=== PATIENT | female | born 1960 | race Caucasian/White ===

== ENCOUNTER 2019-11-26 08:45 | Outpatient (CLI) | payer OTHER, SELFPAY ==
[2019-11-26 09:23] LABS: Basophils Percent Auto 0.6 % (0.2-1.2); Eosinophils Absolute Auto 0.2 K/mm3 (0-0.3); Eosinophils Percent Auto 2.5 % (0-4.4); Hematocrit 41.2 % (37.0-47.0); Hemoglobin 12.5 g/dL (12.0-15.0); Immature Granulocyte Absolute 0.05 K/mm3 (0.00-0.031); Immature Granulocyte Percent A 0.7 % (0-0.5); Lymphocytes Absolute Auto 2.03 K/mm3 (0.9-3.2); Lymphocytes Percent Auto 27.9 % (18.3-44.2); Mean Corpuscular HGB Conc 30.3 g/dl (32-36); Mean Corpuscular Hemoglobin 21.9 pg (26-34); Mean Corpuscular Volume 72.2 fl (80-100); Mean Platelet Volume 10.8 fl (7.4-10.4); Monocytes Absolute Auto 0.6 K/mm3 (0.1-0.6); Monocytes Percent Auto 8.1 % (2.6-8.5); Neutrophils Absolute Auto 4.4 K/mm3 (1.3-6.7); Neutrophils Percent Auto 60.2 % (45.5-73.1); Platelet Count Result 239 k/mm3 (150-375); Red Blood Count 5.71 M/mm3 (4.2-5.4); Red Cell Distribution Width 16.7 % (11.5-14.5); White Blood Count 7.3 K/mm3 (4.5-10.0)
[2019-11-26 09:41] LABS: Alanine Aminotransferase 35 U/L (4-35); Albumin Level 4.4 g/dL (3.5-5.1); Alkaline Phosphatase 73 U/L (38-126); Aspartate Amino Transferase 27 U/L (14-36); Bilirubin,Total 0.2 mg/dL (0.2-1.3); Blood Urea Nitrogen 19 mg/dL (7-17); Calcium 9.7 mg/dL (8.4-10.2); Carbon Dioxide 29 mmol/L (22-30); Chloride 103 mmol/L (98-107); Cholesterol 265 mg/dL (0-200); Estimated Glomerular Filt Rate > 60; Glucose 93 mg/dL (65-105); HDL Direct 66 mg/dL; Potassium 4.3 mmol/L (3.4-5.0); Sodium 138 mmol/L (137-145); Triglycerides 126 mg/dL (<150)
[2019-11-26 09:52] LABS: LDL Cholesterol Direct 172 mg/dL
[2019-11-26 10:10] LABS: Iron 110 ug/dL (37-170)
[2019-11-26 10:12] LABS: Thyroid Stimulating Hormone 0.672 uIU/mL (0.465-4.680); Total Triiodothyronine (T3) 1.78 NG/ML (0.97-1.69)
[2019-11-26 10:13] LABS: Vitamin D 25 Hydroxy 29.3 ng/mL
[2019-11-26 10:14] LABS: Creatinine Urine 131.8 mg/dL
[2019-11-26 10:28] LABS: Free T4 Free Thyroxine 1.01 ng/mL (0.78-2.19)
[2019-11-26 10:30] LABS: MALB Creatinine Ratio < 4.6 mg/g (0-30); Microalbumin Urine Random < 6.0 mg/L (0-16.7)
== END 2019-11-26 08:46 | disposition home or self-care (01) ==
LOC: ANHLAB 08:49
PROVIDERS: PCP Family Medicine; Visit Provider Nurse Practitioner
DX: Z00.00 Encounter for general adult medical examination without abnormal findings (principal); I10 Essential (primary) hypertension; E78.00 Pure hypercholesterolemia, unspecified; R53.83 Other fatigue; Z13.0 Encounter for screening for diseases of the blood and blood-forming organs and certain disorders involving the immune mechanism; Z13.6 Encounter for screening for cardiovascular disorders; Z13.220 Encounter for screening for lipoid disorders; Z13.29 Encounter for screening for other suspected endocrine disorder; R80.9 Proteinuria, unspecified; E55.9 Vitamin D deficiency, unspecified
CPT/HCPCS: 36415; 80053; 80061; 82043; 82306; 82607; 83540; 84439; 84443; 84480; 85025

== ENCOUNTER 2025-05-12 01:14 | Day surgery (SDC) | payer MEDICARE, MEDICAID, SELFPAY ==
--- OUTSIDE RECORDS SUMMARY | 2025-04-27 04:30 | XMS_ITS | Continuity of Care Document ---
Author Organization [facility] Address [address] [place] [phone] Phone Care Team Providers Care Obstetrical Tech Name Role Phone Jannette BAY, [facility], [employer] Unavailable Unavailab le Advance Directives Directive Yes / No Effective Date File Name No Information Encounters Encounter Description Practice Location Reason(s) For Visit Diagnoses Date Provider Providers Copied on Encounter [facility], [address] [place] [address], [id number], tel:[phone] [facility] No Information Jannette Hallman. [address] [place] [address], [id number], . tel:[phone] Referring Provider: Lm Oconnor [address] [place] [address], [id number]. tel:[phone] Family History Family Member Type Diagnosis Age At Onset No Information Payers Payer name Insurance type Covered constitution party ID Authoriza tion(s) No Information Social History Type Description Quantity Date Captured Comments Sex Female Smoking Status No Information Chief Complaint And Reason For Visit No Information Reason For Referral Reason For Referral No Information History Of Present Illness Encounter Date Complaint History Of Prese nt Illness No Information Functional Status Date Functional Assessmen t No Information Instructions Date Instruction Additional Infor mation No Information Assessments Type Assessment Date No Information Patient Care Teams Name Effective Dates (start - stop) Status Members No Information
[2025-04-28 09:49] VITALS: BMI 25.8
--- OUTSIDE RECORDS SUMMARY | 2025-05-12 01:17 | XMS_ITS | Data Portability ---
Author Organization [place] - [facility] [employer], Main Office Address [address] [place] [address] Care Team Providers Care Specialist Managers Name Role Phone BLU OCONNOR Primary Care Provider BLU OCONNOR Referring Provider BLU OCONNOR Primary Care Provider Assessment Encounter Date Assessment Date Assessment LastModified by Organization Details LastModified Time 10/26/2022 10/26/2022 Obtain imaging o f the cervical spine humerus and CT her head Tylenol for pain and she will keep her regular appt Not available 11/11/2022 13:42:53 01/09/2023 01/09/2023 Wellness concluded hypertension hyperlipidemia and GERD have been discussed in detail follow-up with me in 4 months continue current therapy [email or web address] Not available 01/09/2023 10:50:19 05/15/2023 05/15/2023 Continue current therapy blood work ordered follow-up 6 months [email or web address] Not available 05/15/2023 22:47:05 02/08/2025 02/08/2025 65-year-old female presents for evaluation of bilateral hips. She reports pain has been ongoing for a long time, getting progressively worse. It is worse with activities and walking. She also reports pain that radiates down the bilateral legs all the way down below the knees. She has not had any treatments for this. Review of systems patient questionnaire Physical exam: She has positive straight leg raise, worse on the left. She has discomfort with internal external rotation, positive Stinchfield. X-rays of the hips were reviewed, demonstrating degenerative changes with joint space narrowing, osteophytes, sclerosis She has bilateral hip osteoarthritis as well as lumbar radiculopathy. We will begin with a course of conservative management for the hips with anti-inflammatori es and physical therapy. The next step would be to consider a cortisone injection. We will also send her for a spine referral for her radiculopathy. She is in agreement with the plan. [email or web address] Not available 02/08/2025 22:41:12 Plan of Treatment Reminders Order Date Submit Date Provider Last Modified By Organization Details Last Modified Time Details Appointments None recorded. Lab CBC w/ auto diff [address] (Lab), [address] [place], [address], 4 19:01:20 lipid panel, serum [address] (Lab), [address] [place] [address], [address], 4 19:01:20 CMP, serum or plasma [address] (Lab), [address] [place] [address], [address], 4 19:01:20 Referral physical therapist referral - Please contact pt to schedule apt for karlos hips 2024 025 [facility], [address] [place] [address], [address], 5 16:29:28 orthopedic spine surgeon referral - Please schedule pt for low back pain and karlos hip pain..nava ent requesting ophir location 2024 DENISE Gutierrez, [facility] [address], [place], [address], 5 17:11:14 Procedures None recorded. Surgeries None recorded. Imaging XR, hip + pelvis, unilateral 2024 025 [facility] [place], [address] [place] [address], [address], [place], [address], 5 10:42:57 XR, cervical spine 2022 023 [facility] (One Call Scheduling), [address] [place], [address], 3 13:00:55 XR, humerus 2022 023 [facility] (One Call Scheduling), [address] [place], [address], 3 13:56:01 CT, head, w/o contrast 2022 023 [facility] (One Call Scheduling), [address] [place], [address], 3 15:58:05 Medication Orders meloxicam 15 mg tablet [email or web address] [facility], [address] [facility], [place], [address], 5 14:51:11 Patient TargetsNo targets recorded. Patient Instructions Encounter Date Encounter Id Patient Instructions Last Modified By Organization Details Last Modified Time 01/09/2023 [id number] dementia rating scale-2* Not available 01/09/2023 10:50:42 alcohol misuse* [email or web address] Not available 01/09/2023 10:50:42 depression screening* Not available 01/09/2023 10:50:42 Timed Up and Go test (TUG)* Not available 01/09/2023 10:50:42 multi-dimensiona l health assessment questionnaire* [email or web address] Not available 01/09/2023 10:50:42 Personalized a [facility] Plan and Screening Recommendations Advance Directives - Do you have one? No Advance Directives - Do we have your advance directive on file in your health record? Primary Prevention/Interven tion (prevents or decreases the chance of common diseases from occurring) Smoking Risk: Non Smoker Alcohol Misuse Screening: Negative Weight: Overweight try to lose 10% of your body weight Physical activity: Need more exercise/physical activity Nutrition: Average Eat heart healthy diet Fall Risk (screened today): Low Vaccines Pneumococcal: Influenza: Your next one in the fall of this year Chronic Disease Risks Stroke: Intermediate Risk Active diagnosis, Continue current treatment plan Heart Attack: Intermediate Risk Active diagnosis, Continue current treatment plan Clogging of the Arteries: Intermediate Risk Active diagnosis, Continue current treatment plan Diabetes: Low Risk I have no recommendations Secondary Prevention/Interven tion (detects treatable diseases before they may cause symptoms, disability, or ) Breast Cancer Screening with mammogram: up to date Cervical/Uterine/Ov sharmin Cancer Screening: up to date Osteoporosis Screening: No screening necessary Date Screening Last Performed: Colon Cancer Screening: Colonoscopy Date Screening Last Performed: _unsure___ Eye Disease Screening: Your next exam in: goes yearly Dementia Risk: Low I have no recommendations Depression Screening: Negative I have no recommendations [email or web address] Not available 01/09/2023 10:28:03 Reason for Referral Physical Therapist Referral for Pain of hip region karlos hips Please contact pt to schedule apt for karlos hips Referring Physician: Fidel Avelar, Orthopedic Surgery, Encounter Date: 02/08/2025 Orthopedic Spine Surgeon Ref erral for Low back pain karlos hip and low back pain Please schedule pt for low back pain and karlos hip pain..patient requesting ophir location Referring Physician: Fidel Avelar Orthopedic Surgery, Encounter Date: 02/08/2025 Results Created Date Observation Date Name Description Value Unit Range Abnormal Flag Note LastModifiedBy Organization Detail LastModifiedTime 10/27/19 23 10/26/2022 CT, head, w/o contr ast [facility] [address] [facility] [place] [address] Patien t Name: RASHAWN REZA Access ion #: [id number] Sex: F : 1959 8 Locati on: RAD Attend ing Physic demetris: NATALIA OCONNOR Orderi ng Physic demetris: NATALIA OCONNOR Exam Date: 023 10:21 AM Exam Name: CT HEAD WO Admitt ing Diagno sis(es ): RADIOL OGY REPORT - FINAL EXAM: CT HEAD WO HISTOR Y: 62-yea r-old female fell, hit head. COMPAR KENNY: None availa ble. TECHNI QUE: Noncon trast axial CT images of the head were perfor med. Sagitt al and marvin l reform atted images were obtain ed. This CT exam was perfor med using 1 or more of the follow ing dose reduct ion techni ques: Automa tom exposu re contro l, adjust ment of the mA and/or kv accord ing to patien t size, or the use of iterat charlotte recons tructi on techni ques. FINDIN GS: No intrac ranial hemorr von, mass, midlin e shift, hydroc ephalu s, or eviden ce of acute large vessel infarc t. There is minima l decrea sed attenu ation in the Page 1 of 2 [facility] Patien t Name: RASHAWN REZA Access ion #: [id number] Sex: F : 1959 8 Exam Date: 10:21 AM Exam Name: CT HEAD WO Admitt ing Diagno sis(es ): perive ntricu lar white matter . There may be an old lacuna r infarc t of the left fronta l white matter (image 21, series 201) versus artifa ctual appear ance due to promin ent sulcus . The bilate ral mastoi d air cells and middle ear spaces are clear. No crania l fractu re or scalp edema. All of the maxill brittany teeth are absent . There is near comple te opacif icatio n of the right maxill brittany sinus. There is mucosa l thicke yoselyn and mucous retent ion cyst in the left maxill brittany sinus. IMPRES MITA: 1. Chroni c ischem ic change s withou t eviden ce of acute intrac ranial proces s. 2. Bilate ral maxill brittany sinus diseas e, more severe on the right. Create d and electr onical ly signed by: Fidel ross MD Signed Date: 11:09 AM (CT) Dictat ed by: Fidel ross MD DD: 11:09 AM (CT) DT: 11:09 AM (CT) Page 2 of 2 [facility] (Imaging) [address], [place], [address], 11/02/2022 15:58:05 10/27/19 23 10/26/2022 XR, humer us [facility] [address] [facility] [place] [address] Patien t Name: RASHAWN REZA Access ion #: [id number] Sex: F : 1959 8 Locati on: RAD Attend ing Physic demetris: NATALIA OCONNOR Orderi ng Physic demetris: NATALIA OCONNOR Exam Date: 10:15 AM Exam Name: XR HUMERU S RT Admitt ing Diagno sis(es ): RADIOL OGY REPORT - FINAL EXAM: XR HUMERU S RT HISTOR Y: UNSPEC IFIED FALL 62-yea r-old female with right upper arm pain after fall. COMPAR KENNY: None availa ble. TECHNI QUE: AP and latera l views of the right humeru s were perfor med. FINDIN GS: See below. IMPRES MITA: 1. No fractu re or acute osseou s abnorm ality about the right humeru s. 2. Right acromi oclavi cular hypert rophy withou t signif icant loss of subacr omial space. Page 1 of 2 [facility] Patien t Name: RASHAWN REZA Access ion #: [id number] Sex: F : 1959 8 Exam Date: 10:15 AM Exam Name: XR HUMERU S RT Admitt ing Diagno sis(es ): Create d and electr onical ly signed by: Fidel ross MD Signed Date: 12:53 PM (CT) Dictat ed by: Fidel ross MD DD: 12:53 PM (CT) DT: 12:53 PM (CT) Page 2 of 2 [email or web address] (Imaging) [address] [place], [address], 10/30/2022 11:11:24 10/27/19 23 10/26/2022 XR, cervi sylvia spine [facility] [address] [facility] [address], [place] [address] Patien t Name: RASHAWN REZA Leonila Access ion #: [id number] Sex: F : 1959 8 Locati on: RAD Attend ing Physic demetris: NATALIA OCONNOR Orderi ng Physic demetris: NATALIA OCONNOR Exam Date: 10:15 AM Exam Name: XR C SPINE 4-5V Admitt ing Diagno sis(es ): RADIOL OGY REPORT - FINAL EXAM: XR C SPINE 4-5V HISTOR Y: UNSPEC IFIED FALL 62-yea r-old female with neck pain since fallin g 5 days ago. COMPAR KENNY: None availa ble. TECHNI QUE: AP, latera l, obliqu e, and odonto id views of the cervic al spine were perfor med. FINDIN GS: No cervic al or prever tebral soft tissue edema are identi fied. There is advanc ed degene rative disc diseas e C5-C6, mild degene rative disc diseas e at other levels . There is slight retrol isthes is C5 on C6. The obliqu e films demons trate possib le signif icant bony forami nal stenos is on the right at C5-C6. Page 1 of 2 [facility] Patiwendi t Name: RASHAWN REZA Access ion #: [id number] Sex: F : 1959 8 Exam Date: 10:15 AM Exam Name: XR C SPINE 4-5V Admitt ing Diagno sis(es ): IMPRES MITA: Degene rative change s of the cervic al spine withou t eviden ce of fractu re. If the patien t compla ins of upper extrem ity radicu lar sympto ms, consid er follow -up noncon trast MRI of the cervic al spine for evalua tion of the exitin g nerve roots. Create d and electr onical ly signed by: Fidel ross MD Signed Date: 12:58 PM (CT) Dictat ed by: Fidel ross MD DD: 12:58 PM (CT) DT: 12:58 PM (CT) Page 2 of 2 [facility] (Imaging) [address] [place], [address], 11/13/2022 13:00:55 09/17/19 25 09/16/2024 XR, knee, 3 view [facility] [address] [place] [address] [phone] Patien t Name: RASHAWN REZA Access ion #: [id number] Sex: F : 1959 3 Locati on: RAD Attend ing Physic demetris: NATALIA OCONNOR Orderi Physic demetris: NATALIA OCONNOR Exam Date: 09/17/19 25 8:17 AM Exam Name: XR KNEE LT 3V Admitt ing Diagno sis(es ): RADIOL OGY REPORT - FINAL EXAM: XR KNEE LT 3V HISTOR Y: pain in left lower limb 64-yea r-old female with left knee pain, no known injury COMPAR KENNY: None availa ble. TECHNI QUE: 3 views of the left knee were perfor med. FINDIN GS: No acute fractu re is identi fied about the left knee. No signif icant joint space narrow ing. No eviden ce of signif icant joint effusi on. IMPRES MITA: Unrema rkable radiog raphs of the left knee. Page 1 of 2 [facility] Alejandrina corcoran Name: RASHAWN REZA Access ion #: [id number] Sex: F : 1959 3 Exam Date: 09/17/19 8:17 AM Exam Name: XR KNEE LT 3V Admitt ing Diagno sis(es ): If the patien t's sympto ms persis t, consid er follow -up noncon trast MRI of the left knee for furthe r evalua tion. Create d and electr onical ly signed by: Fidel ross MD Signed Date: 09/17/19 11:36 AM (CT) Dictat ed by: Fidel ross MD (CT) (CT) Page 2 of [address] (Imaging) [address] [place], [address], 03/31/2025 09:40:50 09/17/1909/16/2024 XR, femur [facility] [address] [place] [address] [phone] Alejandrina corcoran Name: RASHAWN REZA Access ion #: [id number] Sex: F : 1959 3 Locati on: RAD Attend ing Physic demetris: NATALIA OCONNOR Orderi Physic demetris: NATALIA OCONNOR Exam Date: 09/17/19 8:17 AM Exam Name: XR FEMUR/ THIGH LT 2V Admitt ing Diagno sis(es ): RADIOL OGY REPORT - FINAL EXAM: XR FEMUR/ THIGH LT 2V HISTOR Y: pain in left lower limb 64-yea r-old female with left thigh pain for 6 months , no known injury . COMPAR KENNY: None availa ble. TECHNI QUE: AP and latera l views of the left femur were perfor med. FINDIN GS: See below. IMPRES MITA: 1. No fractu re or osseou s abnorm ality of the left femur. 2. No signif icant degene rative change s of the left hip or left knee. Page 1 of 2 [facility] Name: RASHAWN REZA Access ion #: [id number] Sex: F : 1959 3 Exam Date: 09/17/19 8:17 AM Exam Name: XR FEMUR/ THIGH LT 2V Admitt ing Diagno sis(es ): Create d and electr onical ly signed by: Fidel ross MD Signed Date: 09/17/19 11:37 AM (CT) Dictat ed by: Fidel ross MD (CT) (CT) Page 2 of 2 [email or web address] (Imaging) [address] [place], [address], 03/31/2025 09:40:51 02/09/20 XR, hip + pelvi s, unila teral No observ ation record ed. [email or web address] [facility] [address], [address], [place], [address], 02/08/2025 11:13:03 Result Notes Documentation Provider Name and Address Organization Details Recorded Time Xr, Humerus : [facility] [address] [place] [address] Patient Name: JANICE REZA Sex: F : 1960 Location: [facility] Attending Physician: BLU OCONNOR Ordering Physician: BLU OCONNOR Exam Date: 10/26/2022 10:15 AM Exam Name: XR HUMERUS RT Admitting Diagnosis(es): RADIOLOGY REPORT - FINAL EXAM: XR HUMERUS RT HISTORY: UNSPECIFIED FALL 62-year-old female with right upper arm pain after fall. COMPARISON: None available. TECHNIQUE: AP and lateral views of the right humerus were performed. FINDINGS: See below. IMPRESSION: 1. No fracture or acute osseous abnormality about the right humerus. 2. Right acromioclavicular hypertrophy without significant loss of subacromial space. Page 1 of 2 [facility] Patient Name: JANICE REZA Sex: F : 1960 Exam Date: 10/26/2022 10:15 AM Exam Name: XR HUMERUS RT Admitting Diagnosis(es): Created and electronically signed by: Fidel Rg MD Signed Date: 10/26/2022 12:53 PM (CT) Dictated by: Fidel Rg MD (CT) (CT) Page 2 of 2 Layla Chen RN [facility], [facility] 10/30/2022 11:11:25 Xr, Cervical Spine : [address] [address] Patient Name: JANICE REZA Sex: F : 1960 Location: [facility] Attending Physician: BLU OCONNOR Ordering Physician: BLU OCONNOR Exam Date: 10/26/2022 10:15 AM Exam Name: XR C SPINE 4-5V Admitting Diagnosis(es): RADIOLOGY REPORT - FINAL EXAM: XR C SPINE 4-5V HISTORY: UNSPECIFIED FALL 62-year-old female with neck pain since falling 5 days ago. COMPARISON: None available. TECHNIQUE: AP, lateral, oblique, and odontoid views of the cervical spine were performed. FINDINGS: No cervical or prevertebral soft tissue edema are identified. There is advanced degenerative disc disease C5-C6, mild degenerative disc disease at other levels. There is slight retrolisthesis C5 on C6. The oblique films demonstrate possible significant bony foraminal stenosis on the right at C5-C6. Page 1 of 2 [facility] Patient Name: JANICE REZA Sex: F : 1960 Exam Date: 10/26/2022 10:15 AM Exam Name: XR C SPINE 4-5V Admitting Diagnosis(es): IMPRESSION: Degenerative changes of the cervical spine without evidence of fracture. If the patient complains of upper extremity radicular symptoms, consider follow-up noncontrast MRI of the cervical spine for evaluation of the exiting nerve roots. Created and electronically signed by: Fidel Rg MD Signed Date: 10/26/2022 12:58 PM (CT) Dictated by: Fidel Rg MD (CT) (CT) Page 2 of 2 CHARISSE Peterson, [facility] 11/13/2022 13:00:55 Ct, Head, W/o Contrast : [address] [address] Patient Name: JANICE REZA Sex: F : 1960 Location: [facility] Attending Physician: BLU OCONNOR Ordering Physician: BLU OCONNOR Exam Date: 10/26/2022 10:21 AM Exam Name: CT HEAD WO Admitting Diagnosis(es): RADIOLOGY REPORT - FINAL EXAM: CT HEAD WO HISTORY: 62-year-old female fell, hit head. COMPARISON: None available. TECHNIQUE: Noncontrast axial CT images of the head were performed. Sagittal and coronal reformatted images were obtained. This CT exam was performed using 1 or more of the following dose reduction techniques: Automated exposure control, adjustment of the mA and/or kv according to patient size, or the use of iterative reconstruction techniques. FINDINGS: No intracranial hemorrhage, mass, midline shift, hydrocephalus, or evidence of acute large vessel infarct. There is minimal decreased attenuation in the Page 1 of 2 [facility] Patient Name: JANICE REZA Sex: F : 1960 Exam Date: 10/26/2022 10:21 AM Exam Name: CT HEAD WO Admitting Diagnosis(es): periventricular white matter. There may be an old lacunar infarct of the left frontal white matter (image 21, series 201) versus artifactual appearance due to prominent sulcus. The bilateral mastoid air cells and middle ear spaces are clear. No cranial fracture or scalp edema. All of the maxillary teeth are absent. There is near complete opacification of the right maxillary sinus. There is mucosal thickening and mucous retention cyst in the left maxillary sinus. IMPRESSION: 1. Chronic ischemic changes without evidence of acute intracranial process. 2. Bilateral maxillary sinus disease, more severe on the right. Created and electronically signed by: Fidel Rg MD Signed Date: 10/26/2022 11:09 AM (CT) Dictated by: Fidel Rg MD (CT) (CT) Page 2 of 2 CHARISSE Peterson, DAYAMI Rothman Mame PA [facility] 11/02/2022 15:58:05 Xr, Knee, 3 View : [address] [address] Patient Name: JANICE REZA Sex: F : 1960 Location: [facility] Attending Physician: BLU OCONNOR Ordering Physician: BLU OCONNOR Exam Date: 09/16/2024 8:17 AM Exam Name: XR KNEE LT 3V Admitting Diagnosis(es): RADIOLOGY REPORT - FINAL EXAM: XR KNEE LT 3V HISTORY: pain in left lower limb 64-year-old female with left knee pain, no known injury COMPARISON: None available. TECHNIQUE: 3 views of the left knee were performed. FINDINGS: No acute fracture is identified about the left knee. No significant joint space narrowing. No evidence of significant joint effusion. IMPRESSION: Unremarkable radiographs of the left knee. Page 1 of 2 [facility] Patient Name: JANICE REZA Sex: F : 1960 Exam Date: 09/16/2024 8:17 AM Exam Name: XR KNEE LT 3V Admitting Diagnosis(es): If the patient's symptoms persist, consider follow-up noncontrast MRI of the left knee for further evaluation. Created and electronically signed by: Fidel Rg MD Signed Date: 09/16/2024 11:36 AM (CT) Dictated by: Fidel Rg MD (CT) (CT) Page 2 of 2 HEATHER Guan, [place] [employer] 03/31/2025 09:40:50 Xr, Femur : [address] [address] Patient Name: JANICE REZA Sex: F : 1960 Location: [facility] Attending Physician: BLU OCONNOR Ordering Physician: BLU OCONNOR Exam Date: 09/16/2024 8:17 AM Exam Name: XR FEMUR/THIGH LT 2V Admitting Diagnosis(es): RADIOLOGY REPORT - FINAL EXAM: XR FEMUR/THIGH LT 2V HISTORY: pain in left lower limb 64-year-old female with left thigh pain for 6 months, no known injury. COMPARISON: None available. TECHNIQUE: AP and lateral views of the left femur were performed. FINDINGS: See below. IMPRESSION: 1. No fracture or osseous abnormality of the left femur. 2. No significant degenerative changes of the left hip or left knee. Page 1 of 2 [facility] Patient Name: JANICE REZA Sex: F : 1960 Exam Date: 09/16/2024 8:17 AM Exam Name: XR FEMUR/THIGH LT 2V Admitting Diagnosis(es): Created and electronically signed by: Fidel Rg MD Signed Date: 09/16/2024 11:37 AM (CT) Dictated by: Fidel Rg MD (CT) (CT) Page 2 of 2 HEATHER Guan, [place] [employer] [facility] [employer] 03/31/2025 09:40:51 Problems Name Problem SNOMED Code Status Onset Date Resolution Date Notes Provider Name and Address Organization Details Recorded Time Celluliti s 845178816 Completed Not Available [facility] 3 13:13:55 Folliculi tis 45938884 Completed Not Available [facility] 3 13:13:55 Abscess of axilla 00498144 Completed Not Available [facility] 3 13:13:55 Abscess of lower limb 610336434 Completed Not Available [facility] 3 13:13:55 Bronchiti s 58056880 Active Not Available [facility] 3 17:47:55 Migraine 87848761 Active Not Available [facility] 3 17:47:55 Palpitati ons 82153346 Active Not Available [facility] 3 17:47:56 Conjuncti vitis 2783788 Completed Not Available [facility] 3 13:13:56 Vitamin D deficienc y 38148562 Active 2016 Not Available [facility] 3 17:47:55 Hyperlipi demia 06433253 Active 2016 Not Available [facility] 3 17:47:55 Essential hypertens ion 26567117 Active 2020 Not Available [facility] 3 17:47:56 Gastroeso phageal reflux disease without esophagit is 197641799 Active 2021 Not Available [facility] 3 17:47:55 Dysphagia 06512111 Active 2021 Not Available [facility] 3 17:47:55 Impacted cerumen of bilateral ears 90760851867 68027 Active 2023 Addison Lau MD [address] [address], [place], [address] , [place] [employer] [facility] [employer] 4 14:14:07 Bilateral earache 680318237 Active 2023 SMILEY Abdi null, [place] - [employer] [facility] [employer] 4 12:00:26 Pain of hip region 29404631 Active 2024 Amirah Baxter null, [facility] 5 11:12:48 Low back pain 202560485 Active 2024 Valarie Coyle [employer] L milena, [facility] 5 11:40:02 Notes:Some problems listed i n Document: #[id number] could not be added to this patient's chart. Please review this document and add these problems to the patient's chart manually as needed. Problem Notes None recorded. Procedures Surgical History Date Name Laterality Status Provider Name and Address Organization Details Recorded Time 01/10/20 Medicare Wellness CPT Code, Initial completed Pia Denney RN [facility] 01/09/2023 10:22:00 Hand completed Not Available [facility] 06/2022 13:13:08 Hysterectomy completed Not Available [facility]/15/2022 13:13:08 dilation of esophagus completed Not Available [facility] 08/15/2022 13:13:08 Imaging Results None recorded. Procedure Notes None recorded. Medical Equipment None Reported. Allergies Allergen ID Allergen Name Allergen Category Reaction Reaction Severity Criticality Documentation Date Start Date Code Code System Note Provider Name and Address Organization Details Recorded Time 18380 sumatript an medicatio n Not available Not available Not available 08/15/2022 20629 RxNorm drows y Not Available [facility] 3 13:16:12 54206 Product containin g penicilli n (product) medicatio n other Not available Not available 08/15/2022 60133 8001 SNOMED breat cristina diffi culti es Not Available [facility] 3 13:16:12 02880 codeine medicatio n Not available Not available Not available 08/15/2022 2670 RxNorm Not Available [facility] 3 13:16:12 92692 Aleve medicatio n Not available Not available Not available 08/15/2022 85689 1 RxNorm Not Available [facility] 3 13:16:12 Medications Name Sig Start Date Stop Date Status Note LastModified by Organization Details LastModified Time cyclobenz aprine 10 mg tablet 11/17 completed Not Available Not Available Not Available prednison e 10 mg tablet active Not Available Not Available Not Available doxycycli ne hyclate 100 mg capsule Take 1 capsule twice a day by oral route for 7 days. active Not Available Not Available No t Available atorvasta tin 20 mg tablet Take 1 tablet by mouth once daily active Not Available Not Available No t Available azithromy kulwant 250 mg tablet Take 2 TABLEts the first day then 1/day active Not Available Not Available No t Available fluconazo le 150 mg tablet 06/26 completed Not Available Not Available Not Available benzonata te 200 mg capsule Take 1 capsule 3 times a day by oral route as needed for 7 days. active Not Available Not Available No t Available hydrocodo ne 5 mg-acetam inophen 325 mg tablet Take 1 tablet 3 times a day by oral route as needed. active Not Available Not Available No t Available meloxicam 15 mg tablet Take 1 tablet(s ) every day by oral route. 2024 active Not Available Not Available Not Avai lable sucralfat e 1 gram tablet Take 1 tablet 4 times a day by oral route. 01/29 completed Pt Stopped Taking - Making Her Sick Not Available Not Available Not Available lisinopri l 20 mg tablet active Not Available Not Available Not Available prednison e 20 mg tablet take 2 tablets for 4 days , 1 tablet for 2 days, for a total of 6 days. active Not Available Not Available No t Available sumatript an 50 mg tablet TAKE 1 TABLET BY MOUTH AT ONSET OF HEADACHE , REPEAT IN 2 HOURS IF NEEDED, TAKE ONLY 2 TABLETS IN 12 HOURS active Not Available Not Available No t Available ciproflox acin 500 mg tablet 06/26 completed Not Available Not Available Not Available sulfameth oxazole 800 mg-trimet hoprim 160 mg tablet TAKE 1 TABLET BY MOUTH EVERY 12 HOURS FOR 7 DAYS 10/26 completed Not Available Not Available Not Available omeprazol e 40 mg capsule,d elayed release Take 1 capsule every day by oral route. 06/26 completed Not Available Not Available Not Available tramadol 50 mg tablet 01/29 completed Not Available Not Available Not Available Gentak 0.3 % (3 mg/gram) eye ointment APPLY A SMALL AMOUNT (1/2 INCH) TO THE LOWER LID OF THE AFFECTED EYE(S) BY OPHTHALM IC ROUTE 2 TIMES PER DAY active Not Available Not Available No t Available Celebrex 200 mg capsule Take 1 capsule every day by oral route. 2024 active Not Available Not Available Not Avai lable Tessalon Perles 100 mg capsule Take 1 capsule 3 times a day by oral route. 05/21 completed Not Available Not Available Not Available estradiol 1 mg tablet TAKE 1 TABLET BY MOUTH ONCE DAILY active Not Available Not Available No t Available estradiol 0.075 mg/24 hr weekly transderm al patch 01/29 completed Not Available Not Available Not Available doxycycli ne monohydra te 100 mg capsule Take 1 capsule twice a day by oral route for 7 days. active Not Available Not Available No t Available cephalexi n 500 mg capsule TAKE 1 CAPSULE BY MOUTH EVERY 6 HOURS FOR 7 DAYS 10/26 completed Not Available Not Available Not Available lisinopri l 10 mg tablet TAKE 1 TABLET BY MOUTH ONCE DAILY 02/24 completed Not Available Not Available Not Available lisinopri l 30 mg tablet TAKE 1 TABLET BY MOUTH ONCE DAILY 05/23 completed changed to 20mg daily by Dr Oconnor at visit 05/23/20 21. Not Available Not Available Not Available monteluka st 10 mg tablet TAKE 1 TABLET BY MOUTH ONCE DAILY IN THE EVENING active Not Available Not Available No t Available hydroxyzi ne HCl 25 mg tablet 06/26 completed Not Available Not Available Not Available mupirocin 2 % topical ointment 11/17 completed Not Available Not Available Not Available zolpidem 5 mg tablet Take 1 tablet as needed by oral route at bedtime. active Not Available Not Available No t Available Levaquin 500 mg tablet Take 1 tablet every day by oral route for 10 days. 11/27 completed Not Available Not Available Not Available estradiol 0.5 mg tablet TAKE 1 TABLET BY MOUTH ONCE DAILY 02/24 completed Not Available Not Available Not Available clobetaso l 0.05 % topical ointment 01/29 completed Not Available Not Available Not Available Vitamin D2 1,250 mcg (50,000 unit) capsule Take 1 capsule every week by oral route for 90 days. active Not Available Not Available No t Available ketoconaz ole 2 % topical cream 09/07 completed Not Available Not Available Not Available fluticaso ne propionat e 50 mcg/actua tion nasal spray,jones pension USE 1 SPRAY(S) IN EACH NOSTRIL TWICE DAILY active Not Available Not Available No t Available ezetimibe 10 mg tablet TAKE 1 TABLET BY MOUTH ONCE DAILY 09/[address] Oconnor at visit 09/20/19 22 changed to Lipitor Not Available Not Available Not Available ciproflox acin 0.3 %-dexamet hasone 0.1 % ear drops,jones pension INSTILL 4 DROPS INTO AFFECTED EAR(S) TWICE DAILY FOR 7 DAYS active Not Available Not Available No t Available topiramat e 50 mg tablet TAKE 1 TABLET BY MOUTH TWICE DAILY 02/24 completed Not Available Not Available Not Available nitrofura ntoin monohydra te/macroc rystals 100 mg capsule TAKE 1 CAPSULE BY MOUTH EVERY 12 HOURS FOR 7 DAYS 10/26 completed Not Available Not Available Not Available omeprazol e OTC 2020 active Not Available Not Available Not Avai lable Vitamin D3 2020 active Not Available Not Available Not Avai lable lansopraz ole 05/23 completed Not Available Not Available Not Available estradiol -norethin drone acet 0.5 mg-0.1 mg tablet TAKE 1 TABLET BY MOUTH ONCE DAILY 09/19 completed Not Available Not Available Not Available omeprazol e 20 mg tablet,de layed release Take 2 tablets every day by oral route. 06/26 completed [facility] only [facility] 20mg tablets Not Available Not Available Not Available azelastin e 205.5 mcg (0.15 %) nasal spray [place] 2 sprays twice a day by intranas al route for 30 days. active Not Available Not Available No t Available Eucrisa 2 % topical ointment 01/29 completed Not Available Not Available Not Available Vitals Date Recorded Body height Body mass index (BMI) Body weight Body temperature Provider Name and Address Organization Details Last Updated DateTime 08/21/2023 165.1 cm 27.5 kg/m2 63144.46 g 98 [degF] Ree Duarte RN [place] [facility] [employer] 08/21/2023 14:03:13 Date Recorded Body height Body mass index (BMI) Body weight Body temperature Heart rate Systolic And Diastolic Provider Name and Address Organization Details Last Updated DateTime 165.1 cm 27.5 kg/m2 33981.7 4 g 98.9 [degF] 71 /min 132/84 mm[Hg] Cora Villalobos Rickey [facility] 3 10:02:05 Date Recorded Pain severity - 0-10 verbal numeric rating [Score] - Reported Provider Name and Address Organization Details Last Updated DateTime 01/09/2023 0 Pia Denney RN [facility] 01/09/2023 10:22:18 Date Recorded Body height Body mass index (BMI) Body weight Body temperature Heart rate Systolic And Diastolic Provider Name and Address Organization Details Last Updated DateTime 3 165.1 cm 27.1 kg/m2 85123.5 6 g 97.2 [degF] 74 /min 116/78 mm[Hg] Cora Villalobos Rickey [facility] 3 10:11:08 Date Recorded Body height Body mass index (BMI) Body weight Provider Name and Address Organization Details Last Updated DateTime 02/08/2025 165.1 cm 25.8 kg/m2 18047.82 g Amirah Baxter [facility] 02/08/2025 11:10:16 Date Recorded Body height Body mass index (BMI) Body weight Body temperature Heart rate Systolic And Diastolic Provider Name and Address Organization Details Last Updated DateTime 3 165.1 cm 26.8 kg/m2 93830.3 7 g 97.6 [degF] 93 /min 124/72 mm[Hg] Layla pritchett RN [facility] 3 11:20:36 Social History Question Answer Notes LastModified by Organizat ion Details LastModified Time Tobacco Smoking Status Never Smoker Not Available [employer] 08/15/2022 13:12:57 Do You Have An Advance Directive? No [id number] Information not available 08/15/2022 What Is Your Level Of Caffeine Consumption? Moderate MIGRATION.76577 53795 Information not available 08/15/2022 In The 14 Days Before Symptom Onset, Have You Had Close Contact With A Laboratory-gini jasmyned COVID-19 While That Case Was Ill? No MIGRATION.55788 17053 Information not available 08/15/2022 In The 14 Days Before Symptom Onset, Have You Had Close Contact With A Person Who Is Under Investigation For COVID-19 While That Person Was Ill? No MIGRATION.67065 05502 Information not available 08/15/2022 What Type Of Diet Are You Following? REGULAR MIGRATION.31989 99627 Information not available 08/15/2022 What Is The Highest Grade Or Level Of School You Have Completed Or The Highest Degree You Have Received? [id number] MIGRATION.16433 95140 Information not available 08/15/2022 Have There Been Any Changes To Your Family Or Social Situation? No MIGRATION.69826 77230 Information not available 08/15/2022 What Is The Fluoride Status Of Your Home? Unknown MIGRATION.85450 78455 Information not available 08/15/2022 Are There Any Guns Present In Your Home? No MIGRATION.46188 88021 Information not available 08/15/2022 Do You Use Insect Repellent Routinely? No MIGRATION.53889 49515 Information not available 08/15/2022 Where Do You Live? [place] MIGRATION.03759 90828 Information not available 08/15/2022 Do You Have A Medical Power Of Charter Pilot? No MIGRATION.60769 86884 Information not available 08/15/2022 What Was The Date Of Your Most Recent Tobacco Screening? 02/08/2025 [email or web address] Information not available 02/08/2025 Do You Have Any Pets? Yes MIGRATION.08868 29604 Information not available 08/15/2022 What Is Your Relationship Status? Domestic Partner MIGRATION.03659 09028 Information not available 08/15/2022 Do You Use Your Seat Belt Or Car Seat Routinely? Yes MIGRATION.20377 04409 Information not available 08/15/2022 Do You Have Smoke And Carbon Monoxide Detectors In Your Home? Yes MIGRATION.47296 31377 Information not available 08/15/2022 Are You Passively Exposed To Smoke? No MIGRATION.62235 67286 Information not available 08/15/2022 Are There Any Smokers In Your House? No MIGRATION.34129 72025 Information not available 08/15/2022 What Types Of Sporting Activities Do You Participate In? None MIGRATION.85881 47972 Information not available 08/15/2022 Do You Use Sunscreen Routinely? Yes MIGRATION.44312 03783 Information not available 08/15/2022 Has Tobacco Cessation Counseling Been Provided? No Not Needed-ne marisol Smoked MIGRATION.90838 65174 Information not available 08/15/2022 Have You Recently Traveled Abroad? No MIGRATION.02498 59761 Information not available 08/15/2022 Do You Have Any Dietary Restrictions? No MIGRATION.82726 07987 Information not available 08/15/2022 Sex: Female Functional Status Question Answer Note LastModified by [employer] Details LastModified Time Do you use any illicit or recreational drugs? No MIGRATION.[id number] 26 Information not available 08/15/2022 Do you or have you ever used any other forms of tobacco or nicotine? No MIGRATION.[id number] 26 Information not available 08/15/2022 What is your level of alcohol consumption? None MIGRATION.[id number] 26 Information not available 08/15/2022 What is your occupation? retired MIGRATION.[id number] 26 Information not available 08/15/2022 What is your exercise level? None MIGRATION.[id number] 26 Information not available 08/15/2022 Mental Status Question Answer Note LastModified by [employer] Details LastModified Time Do you feel stressed (tense, restless, nervous, or anxious, or unable to sleep at night)? [id number] MIGRATION.[id number] 6 Information not available 08/15/2022 Family History Relationship Description Onset Age of this Age Resolved Age Notes LastModified by Organization Details LastModified Time Mother Malignant neoplasm of kidney 76 MIGRATION.[id number] Not available 08/15/2022 13:13:09 Mother Myocardial infarction MIGRATION.472 [id number] Not available 08/15/2022 13:13:09 Father Cerebrovascu lar accident 69 MIGRATION.355 [id number] Not available 08/15/2022 13:13:09 Maternal Grandfather Malignant neoplastic disease MIGRATION.947 [id number] Not available 08/15/2022 13:13:09 Brother Heart disease MIGRATION.962 [id number] Not available 08/15/2022 13:13:09 Brother Heart disease MIGRATION.223 [id number] Not available 08/15/2022 13:13:09 Brother Myocardial infarction MIGRATION.871 [id number] Not available 08/15/2022 13:13:09 Brother Myocardial infarction MIGRATION.921 [id number] Not available 08/15/2022 13:13:09 Notes:NO ENT Medical History Condition Response NERVE DISEASE N BLINDNESS N RHEUMATIC FEVER N KIDNEY STONES N BLADDER PROBLEMS N MRSA N OTHER # 1 Y POLIO N LUNG DISEASE/DISORDER N HISTORY OF DRUG ABUSE N RADIATION / CHEMOTHERAPY N COPD N Other # 2 N BLOOD DISEASES N EAR OR HEARING PROBLEMS N MUMPS N SHINGLES N DEPRESSION (INCLUDING POST ) N BOWEL PROBLEMS N STROKE/TIA N ULCERS N BENIGN PROSTATIC HYPERPLASIA N MEASLES N HYPOTENSION N MYOCARDIAL INFARCTION N OBESITY N GERD/NAUSEA Y ANEURYSM N URINARY/BLADDER/KIDNEY PROBLEMS N CORONARY ARTERY DISEASE (CAD) N ADDICTION CONCERNS N Impotence N ENDOMETRIOSIS N USE OF BLOOD THINNERS N SKIN PROBLEMS Y GASTROINTESTINAL DISORDER N PERIPHERAL VASCULAR DISEASE N MUSCLE,JOINT OR BONE PROBLEMS N GASTROINTESTINAL BLEEDING N BLOOD CLOTS N ASTHMA N CATARACTS N ERECTILE DYSFUNCTION N VARICOSITIES N GI PROBLEMS N Low Testosterone N INFERTILITY N AIDS/HIV N CHEMOTHERAPY / RADIATION N LIVER DISEASE N MALE HYPOGONADISM N HYPERTENSION Y Deficiency Y TOURETTE'S N ANXIETY DISORDER N BLOOD TRANSFUSION N ANEMIA/BLOOD DISORDER Y CHRONIC EAR INFECTIONS N BRONCHITIS Y TUBERCULOSIS N GLAUCOMA N FOOT PROBLEM N DIVERTICULITIS N SLEEP APNEA N CHICKENPOX N INFECTIOUS DISEASE N PROSTATE N HEART ARRHYTHMIA N INSOMNIA N HIGH CHOLESTEROL / HYPERLIPIDEMIA Y HYPERTHYROIDISM N EYE PROBLEMS N EDEMA N CHRONIC PAIN SYNDROME N HYPOTHYROIDISM N CONSTIPATION N CAROTID BLOCKAGE N BACK / NECK PROBLEMS N HAVE YOU BEEN HOSPITALIZED OR [facility] IN [facility] IN THE PAST YEAR ? N ATHEROSCLEROSIS N BREAST PROBLEMS N DIALYSIS N ECZEMA Y OSTEOPOROSIS N ARTHRITIS N APPENDICITIS N DIABETES, TYPE N BAD TEETH N ENT N HEARTBURN / REFLUX N AUTISM SPECTRUM DISORDER (ASD) N HEPATITIS / LIVER DISEASE N GOUT N SLEEP DISORDER N ALZHEIMER'S DISEASE N Brain Problems N HERPES N DEMENTIA N SEIZURES/EPILEPSY N HEADACHES/MIGRAINES Y VASCULAR DISEASE N PACEMAKER N Blood Disorder N DIZZINESS N KIDNEY DISEASE N HEART DISEASE/HEART PROBLEMS N MULTIPLE SCLEROSIS N CARDIAC ARRHYTHMIA N CANCER: SPECIFY N Gall Stones N ATRIAL FIBRILLATION N PULMONARY EMBOLISM N AUTOIMMUNE DISEASE N Gynecological HistoryNo gynecological history recorded. Obstetrics History GPAL:G 0 P 0 0 0 0 Immunizations Vaccine Type Date Status Note Provider Tarun e and Address Organization Details Recorded Time COVID-19, mRNA, LNP-S, PF, 100 mcg/0.5mL dose or 50 mcg/0.25mL dose 12/28/2020 completed Not Available [facility] 3 17:47:56 COVID-19, mRNA, LNP-S, PF, 100 mcg/0.5mL dose or 50 mcg/0.25mL dose 11/29/2020 completed Not Available [facility] 17:47:56 Past Encounters Encounter ID Performer Location Encounter Start Date Encounter Closed Date Diagnosis/Indication Diagnosis SNOMED-CT Code Diagnosis ICD10 Code Diagnosis IMO Codes Diagnosis Note [id number] Blu Oconnor MD [facility] [address] [facility] [address] [address] 02/24/2021 00:00:00 02/25/2021 15:05:18 [id number] Blu Oconnor MD [facility] [address] [facility] [address] [address] 04/18/2021 00:00:00 04/19/2021 20:47:54 [id number] Blu Oconnor MD [facility] [[email or web address] [address] [facility] [address] [address] 05/23/2021 00:00:00 05/23/2021 21:55:12 [id number] Blu Oconnor MD [facility] [[email or web address] [address] [facility] [address] [address] 08/23/2021 00:00:00 09/15/2021 23:14:13 [id number] Blu Oconnor MD [facility] [[email or web address] [address] [facility] [address] [address] 09/19/2021 00:00:00 10/07/2021 16:15:50 [id number] Blu Oconnor MD [facility] [[email or web address]] [address] [facility] [address] [address] 01/31/2022 00:00:00 02/03/2022 21:44:23 [id number] Blu Oconnor MD [facility] [[email or web address]] [address] [place] [address]., [address] [address] 04/02/2022 00:00:00 04/02/2022 20:50:54 [id number] Blu Oconnor MD [facility] [[email or web address]] [address] [place] [address] [address] 05/16/2022 00:00:00 06/03/2022 18:25:58 [id number] Blu Oconnor MD [facility] [[email or web address]] [address] [facility] [address] [address] 09/12/2022 13:59:28 09/12/2022 15:09:10 Essential hypertension 70969224 I10 Gastroesop hageal reflux disease without esophagitis 552769183 K21.9 Hyperlipidemia 39450798 E78.5 [id number] Blu Oconnor MD [facility] [place] [facility] [[email or web address]] [address] [place], [place] [address]., [address] [address] 10/26/2022 09:53:51 10/26/2022 10:56:18 Fall W19.XXXA [id number] Blu Oconnor MD [facility] [place] [address] [address] [facility] [address] [address] 01/09/2023 10:02:23 01/09/2023 10:51:02 Adult health examination 176938471 Z00.00 Screening for disorder 514564395 Z13.9 Essential hypertension 48609975 I10 Gastroesop hageal reflux disease without esophagitis 275644274 K21.9 Hyperlipidemia 35159328 E78.5 [id number] Blu Oconnor MD [facility] [place] [address] [address] [address] 05/15/2023 11:01:39 05/15/2023 12:21:10 Essential hypertension 05192925 I10 Gastroesop hageal reflux disease without esophagitis 114519119 K21.9 Hyperlipidemia 16332219 E78.5 [id number] Addison Lau MD [facility] [place] [address] [place] [address] 08/21/2023 13:51:47 08/21/2023 14:37:27 Impacted cerumen of bilateral ears 9156492728 952955 H61.23 [id number] Fidel Avelar MD [facility] [address], [address] [place] [address] 02/08/2025 10:43:29 02/08/2025 11:43:30 Pain of hip region 81531809 M25.551 M25.552 [id number] Low back pain 626616473 M54.50 [id number] Health Concerns Section Related Observation LastModified by Organization Detai ls LastModified Time None Recorded Concern Status LastModified by Organization Details LastModified Time None Recorded Advance Directives Directive N: Payers Insurance Date Sequence Insurance Name Policy Number Policy Toscano Covered Member ID Toscano Member ID Guarantor Name 02/08/2025 1 [employer] (MEDICARE REPLACEMENT/A DVANTAGE - HMO) [id number] Janice Medrano Ryan [id number] Janice Medrano Ryan 02/08/2025 1 [employer] (MEDICARE REPLACEMENT/A DVANTAGE - PPO) [id number] Janice M Ryan [id number] Janice M Ryan 02/08/2025 2 MEDICA[place]: [facility] Janice Marcela Ryan [id number] Janice Marcela Ryan 02/08/2025 1 [employer] (MEDICARE REPLACEMENT/A DVANTAGE - PPO) Janice M Ryan [id number] Janice M Ryan 02/08/2025 1 [employer] Janice M Ryan [id number] Janice M Ryan 02/08/2025 1 [employer] (MEDICARE REPLACEMENT/A DVANTAGE - HMO) [id number] Janice M Ryan [id number] aJnice Medrano Ryan 02/08/2025 1 [employer] (MEDICARE REPLACEMENT/A DVANTAGE - PPO) Janice Reza [id number] Janice Marcela Ryan Notes Date Note Type Note Provider Name and Address Organization Details Recorded Time 3 text/html L hit her head hurt her neck hurt her right arm no unconsciousness no blurred vision no neurological or cardiac symptoms prior to fall Blu Oconnor MD [address], [place], [address], [facility] [employer] 11/11/2022 13:43:18 3 text/html Hypertension no headache no dizzinesshyperlipidemia tries to follow a low-fatGERD no nausea no vomitingwellness visit completed Blu Oconnor MD [address], [place], [address], [facility] [employer] [facility] 01/09/2023 10:50:46 3 text/html Hypertension no headache no dizzinesshyperlipidemia tries to follow a low-fatGERD no nausea no vomiting Blu Oconnor MD [address] [address], [place], [address], [facility] [employer] [facility] 05/15/2023 22:47:22 4 text/html Don Lau MD [address] [address], [place], [address], [facility] [employer] [facility] 08/21/2023 14:14:35 OBGyn Episode No OBEpisode recorded.
--- OUTSIDE RECORDS SUMMARY | 2025-05-12 01:17 | XMS_ITS | Continuity of Care Document ---
Author Organization [facility] Ron CARDOZA (Adult Med) Address [address] [place] [address] Care Team Providers Care Content Curator Name Role Phone BLU OCONNOR Primary Care Provider [phone] ARNULFO ALEX Rn New Grad KAREN TEJADA Orthopedic Surgeon Assessment Encounter Date Assessment Date Assessment LastModified by Organization Details LastModified Time 05/07/2025 05/07/2025 Blood pressure is much better she feels much better so she has not felt this good in awhile she is holding off on scheduling of the other testing until she gets what is already ordered done she will see me in 3 months [email or web address] Not available 05/07/2025 14:46:12 Plan of Treatment Reminders Order Date Submit Date Provider Last Modified By Organization Details Last Modified Time Details Appointments ANY 15 026 11:15AM Blu Oconnor MD Not available Not available Not available Lab None record ed. Referral None record ed. Procedures None record ed. Surgeries None record ed. Imaging None record ed. Medication Orders None record ed. Patient TargetsNo targets recorded. Patient Instructions Encounter Date Encounter Id Patient Instructions Last Modified By Organization Details Last Modified Time 05/07/2025 [id number] A healthy lifestyle: care instructions [email or web address] Not available 05/07/2025 13:10:14 Reason for Referral None Reported. Results Created Date Observation Date Name Description Value Unit Range Abnormal Flag Note LastModifiedBy Organization Detail LastModifiedTime 04/07/20 25 04/08/2025 T4, FREE T4,free(dire ct) 1.24 NG/dL 0.82-1 .77 Not Available [facility] ([facility]) [address] [facility], [place], [address], 04/08/2025 13:12:59 04/07/2004/08/2025 MAGNE SIUM magnesium 2.4 mg/dL 1.6-2. 3 above high normal Not Available [facility] ([facility]) [address] [facility], [place], [address], 04/08/2025 13:13:00 04/07/2004/08/2025 TSH TSH 0.435 uIU/m L 0.450- 4.500 below low normal Not Available [facility] ([facility]) [address] [facility], [place], [address], 04/08/2025 13:13:00 04/07/2004/08/2025 TRIIO DOTHY FELICIA E (T3), FREE triiodothyro nine (T3), free 2.8 pg/mL 2.0-4. 4 Not Available [facility] ([facility]) [address] [facility], [place], [address], 04/08/2025 13:13:01 04/07/20 elect rocar diogr am No observ ation record ed. AMARJIT In-Office Order Internal Use Only DO Not Attach Compendium DO Not Attach Compendium, Do Not Delete/merge, [id number] 04/07/2025 15:19:46 04/07/2004/07/2025 elect rocar diogr am No observ ation record ed. BARCODE Not Available 2024 16:04:19 05/07/2004/27/2025 , echo ardio gram No observ ation record ed. AMARJIT [facility] [address], [place], [address], 05/11/2025 15:07:33 Result Notes None recorded. Problems Name Problem SNOMED Code Status Onset Date Resolution Date Notes Provider Name and Address Organization Details Recorded Time Acute urinary tract infection 242347073 Active Eugene abbott, [place] - [facility] 5 10:28:37 Menopause Active 2016 Eugene abbott, [place] [facility] 7 15:02:06 History of total hysterectomy 105545537 Active 2019 Eugene abbott[place] [facility] 0 11:58:06 Gastroesophage al reflux disease 328752287 Active 2019 Eugene abbott, [place] [facility] 0 12:03:00 Hiatal hernia 57447723 Active 2019 Eugene abbott, [place] [facility] 0 12:03:12 Essential hypertension 91697035 Active [address] [place] null, [place] - [facility] 5 11:56:42 Hyperlipidemia 38020961 Active 2023 Blu Oconnor MD Attn: Juliano gomez,[address] [place], [address], [place] - [facility] 4 12:25:48 Osteoarthritis 592838750 Active 2023 Blu Oconnor MD Attn: Juliano gomez,[address] [place], [address], [place] [facility] 4 12:25:49 Pain in left lower limb 059517483 Active 2023 Blu Oconnor MD Attn: Juliano gomez,[address] [place], [address], [place] - [facility] 4 12:25:50 Chronic rhinitis 75248578 Active 2024 Blu Oconnor MD Attn: Juliano gomez,[address] [place], [address], [place] [facility] 5 21:05:20 Stricture of esophagus 05282154 Active [address] [place] null, [place] - [facility] 5 11:56:42 Problem Notes None recorded. Procedures Surgical History Date Name Laterality Status Provider Name and Address Organization Details Recorded Time 10/26/19 22 Date of Last Mammogram completed Maame Oliva MA [facility] 11/30/2021 10:32:30 06/17/19 13 Date of Last Pap Smear completed Vivienne Gomez MA [facility] 04/19/2016 15:18:17 06/17/19 13 Most Recent Mammogram completed Vivienne Gomez MA [facility] 04/19/2016 15:19:29 Hysterectomy completed Vivienne Gomez MA [facility] 04/19/2016 15:05:14 Esophagoscopy rigid balloon completed Vivienne Gomez MA [facility] 04/19/2016 15:17:50 Imaging Results None recorded. Procedure Notes None recorded. Medical Equipment None Reported. Allergies Allergen ID Allergen Name Allergen Category Reaction Reaction Severity Criticality Documentation Date Start Date Code Code System Note Provider Name and Address Organization Details Recorded Time 974454 Aleve medicatio n wheezing moderate Not available 06/25/20192016 87837 1 RxNorm Eugene Ring [facility], [facility] 0 11:59:19 023251 cephalexi n medicatio n chest pain rash mild moderate Not available 10/16/2022 2231 RxNorm [place] BAILEE Sellers [facility], [facility] 3 12:34:32 360278 sumatript an medicatio n Not available Not available Not available 01/12/2025 28408 RxNorm Davina SaxenaCHRISTIN [facility], [facility] 5 16:01:50 370419 penicilli n V Not available dyspnea severe Not available 04/17/2025 7984 RxNorm Not Available amarjit - External Data Service - prod 5 01:34:33 66333 codeine medicatio n respirato ry distress severe Not available 04/19/2016 2670 RxNorm Vivienne CHRISTIN Gomez, [facility] 6 15:10:14 46608 Product containin g penicilli n (product) medicatio n rash respirato ry distress moderate severe Not available 04/19/2016 35032 8001 SNOMED Vivienne AntonisydneeCHRISTIN, [facility] 6 15:10:58 Medications Name Sig Start Date Stop Date Status Note LastModified by Organization Details LastModified Time topiramat e 50 mg tabs 06/25 completed Not Available Not Available Not Available estradiol /norethin drone acetate 0.5-0.1 mg tabs 08/30 completed Not Available Not Available Not Available estradiol 0.5 mg tabs 08/30 completed Not Available Not Available Not Available monteluka st sodium 10 mg tabs 06/25 completed Not Available Not Available Not Available doxycycli ne hyclate 100 mg caps 06/25 completed Not Available Not Available Not Available sumatript an succinate 50 mg tabs 06/25 completed Not Available Not Available Not Available fluticaso ne propionat e 50 mcg/act susp 06/25 completed Not Available Not Available Not Available doxycycli ne monohydra te 100 mg caps 06/25 completed Not Available Not Available Not Available multivita min tablet Take 1 tablet every day by oral route. 11/30 completed Not Available Not Available Not Available celecoxib 200 mg capsule TAKE 1 CAPSULE BY MOUTH ONCE DAILY active Not Available Not Available No t Available doxycycli ne hyclate 100 mg capsule 06/25 completed Not Available Not Available Not Available atorvasta tin 20 mg tablet TAKE 1 TABLET EVERY DAY 2024 active Not Available Not Available Not Avai lable meloxicam 15 mg tablet TAKE 1 TABLET BY MOUTH ONCE DAILY active Not Available Not Available No t Available lisinopri l 20 mg tablet TAKE 2 TABLETS IN THE MORNING AND 1 TABLET IN THE EVENING DAILY active Not Available Not Available No t Available Zithromax Z-Julio 250 mg tablet Take 1 dose pk by oral route. 03/30 completed Not Available Not Available Not Available sumatript an 50 mg tablet 06/25 completed Not Available Not Available Not Available sulfameth oxazole 800 mg-trimet hoprim 160 mg tablet TAKE 1 TABLET BY MOUTH EVERY 12 HOURS FOR 7 DAYS 09/17 completed Not Available Not Available Not Available estradiol 1 mg tablet TAKE 1 TABLET EVERY DAY active Not Available Not Available No t Available estradiol 0.075 mg/24 hr weekly transderm al patch APPLY ONE PATCH TOPICALL Y ONCE A WEEK 08/30 completed Not Available Not Available Not Available doxycycli ne monohydra te 100 mg capsule 06/25 completed Not Available Not Available Not Available cephalexi n 500 mg capsule Take 1 capsule every 6 hours by oral route for 7 days. 10/16 completed RASH, CHEST DISCOMFO RT Not Available Not Available Not Available Cipro 500 mg tablet Take 1 tablet every 12 hours by oral route. 06/25 completed Not Available Not Available Not Available lisinopri l 10 mg tablet 09/16 completed Not Available Not Available Not Available lisinopri l 30 mg tablet 11/30 completed Not Available Not Available Not Available monteluka st 10 mg tablet TAKE 1 TABLET EVERY DAY 2024 active Not Available Not Available Not Avai lable estradiol 0.5 mg tablet TAKE ONE TABLET BY MOUTH ONCE DAILY 08/30 completed Not Available Not Available Not Available fluticaso ne propionat e 50 mcg/actua tion nasal spray,jones pension 06/25 completed Not Available Not Available Not Available ezetimibe 10 mg tablet Take 1 tablet every day by oral route. 09/17 completed Not Available Not Available Not Available ciproflox acin 0.3 %-dexamet hasone 0.1 % ear drops,jones pension INSTILL 4 DROPS INTO AFFECTED EAR(S) TWICE DAILY FOR 7 DAYS 09/17 completed Not Available Not Available Not Available topiramat e 50 mg tablet 06/25 completed Not Available Not Available Not Available nitrofura ntoin monohydra te/macroc rystals 100 mg capsule Take 1 capsule every 12 hours by oral route for 7 days. 10/12 completed Not Available Not Available Not Available Singulair 08/30 completed Not Available Not Available Not Available estradiol -norethin drone acet 0.5 mg-0.1 mg tablet active Not Available Not Available Not Available Calcium with Vitamin D 600 mg-10 mcg (400 unit) tablet Take 1 tablet twice a day by oral route. 11/30 completed Not Available Not Available Not Available Vitals Date Recorded Body height Body mass index (BMI) Body weight Heart rate Oxygen saturation Systolic And Diastolic Provider Name and Address Organization Details Last Updated DateTime 5 165.1 cm 26.5 kg/m2 03351.1 9 g 74 /min 98 % 114/70 mm[Hg] Davina HemanthCHRISTIN [place] [facility] 5 12:47:59 Social History Question Answer Notes LastModified by Organizat ion Details LastModified Time Tobacco Smoking Status Never Smoker Vivienne Gomez [place] null, [place] [facility] 04/19/2016 15:11:31 Do You Have An Advance Directive? No Information n ot available 04/19/2016 Are You Blind Or Do You Have Difficulty Seeing? No Information n ot available 07/21/2024 Is Blood Transfusion Acceptable In An Emergency? Yes Information not available 04/19/2016 What Is Your Level Of Caffeine Consumption? Heavy Information not available 04/19/2016 How Much Tobacco Do You Chew? None Information not available 04/19/2016 In The 14 Days Before Symptom Onset, Have You Had Close Contact With A Laboratory-confirm ed COVID-19 While That Case Was Ill? No Information n ot available 07/21/2024 In The 14 Days Before Symptom Onset, Have You Had Close Contact With A Person Who Is Under Investigation For COVID-19 While That Person Was Ill? No Information not available 07/21/2024 Have You Been To An Area Known To Be High Risk For COVID-19? No Information not available 07/21/2024 Are You Deaf Or Do You Have Serious Difficulty Hearing? No Information not available 07/21/2024 What Type Of Diet Are You Following? REGULAR Information n ot available 04/19/2016 Which Illicit Or Recreational Drugs Have You Used? None Information not available 04/19/2016 Education 4 Year College Information not available 04/19/2016 Live Alone Or With Others? With Others Information not available 04/19/2016 What Was The Date Of Your Most Recent Tobacco Screening? 05/07/2025 Information not available 05/07/2025 How Many Children Do You Have? 3 Information not available 04/19/2016 Performs Monthly Self-breast Exam? No Information no t available 04/19/2016 Do You Use Protection During Sex? No Information not available 04/19/2016 What Is Your Relationship Status? Domestic Partner Information not available 06/25/2019 Do You Use Your Seat Belt Or Car Seat Routinely? Yes Information not available 01/12/2025 Seat Belts Used Routinely Yes Information not available 04/19/2016 Are You Sexually Active? Yes Information not available 04/19/2016 Do You Have Smoke And Carbon Monoxide Detectors In Your Home? Yes Information not available 08/30/2021 Are You Passively Exposed To Smoke? No Information no t available 08/30/2021 How Much Tobacco Do You Smoke? No Information not available 06/25/2019 General Stress Level Low Information not available 04/19/2016 Do You Use Sunscreen Routinely? Yes Information not available 04/19/2016 Has Tobacco Cessation Counseling Been Provided? Yes Information not available 07/17/2023 On What Date Was Tobacco Cessation Counseling Provided? 04/07/2025 Information not available 04/07/2025 How Many Years Have You Smoked Tobacco? 0 Information not available 06/25/2019 Sex: Unknown Functional Status Question Answer Note LastModified by Organizat ion Details LastModified Time Do you use any illicit or recreational drugs? No Information not available 08/30/2021 Do you or have you ever used any other forms of tobacco or nicotine? No Information not available 11/30/2021 What is your level of alcohol consumption? None Information not available 04/19/2016 Do you or have you ever used smokeless tobacco? Never used smokeless tobacco Information not available 06/25/2019 Are you currently employed? Yes Information not available 04/19/2016 Are you able to care for yourself independently? 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 Never used electronic cigarettes Information not available 06/25/2019 What is your exercise level? None Information not available 04/19/2016 Mental Status None recorded. Family History Relationship Description Onset Age of this Age Resolved Age Notes LastModified by Organization Details LastModified Time Mother Malignant neoplasm of kidney [email or web address] Not available 2024 12:15:14 Mother Myocardial infarction [email or web address] Not available 07/20 12:15:30 Brother Myocardial infarction [email or web address] Not available 07/20 12:15:30 Brother Heart disease [email or web address] Not available 2024 12:15:49 Father Cerebrovascu lar accident [email or web address] Not available 08/2024 12:15:39 Medical History Condition Response Coronary Artery Disease N Other N Atrial Fibrillation N High Blood Pressure Y Breast Cancer N Depression N COPD N Blood Clots N Lung Disease N Breast Problem N Anesthesia Complications N Headaches/Migraines Y Anxiety Disorder N Muscle, Joint, or Bone Problems Y Infertility N Polyps N Acid Reflux (GERD) Y Cancer N Stroke N Endometriosis N High Cholesterol Y Liver Disease N Thyroid Problems N Kidney or Bladder Problems N GI Problems N Acne N Have you had a mammogram in the last yea r? N Skin Problems Y Eating Disorder N Anemia N Heart Attack ([place]) N Ovarian Cancer N Diabetes N Blood Transfusions N Seizures/Epilepsy N Have you had a colonoscopy in the last 1 0 years? N Abuse/Domestic Violence N Allergies Y Asthma N Have you had a PSA blood test in the las t year? N Hepatitis N Heart Disease N Pre-Eclampsia N Osteoporosis N Heart Failure N Gynecological History Statement/Question Response Abnormal Pap N Date of Last Mammogram 10/25/2021 Date of LMP STIs/STDs Y HPV Vaccine N Most Recent Mammogram 06/17/2012 Age at Menarche 11 Current Control Method Hysterectom y Age at First Child 23 Sexually Active? Y Menses Monthly N Date of Last Pap Smear 06/17/2012 Sexual Problems? N Desired Control Method None Obstetrics History GPAL:G 3 P 3 0 0 3 Type Value Full Term 3 Living 3 Total 3 Immunizations Vaccine Type Date Status Note Provider Tarun ross and Address Organization Details Recorded Time COVID-19, mRNA, LNP-S, PF, 100 mcg/0.5mL dose or 50 mcg/0.25mL dose 11/29/2020 completed Cher Bonner [place] null, [place] - [facility] 01/22/2024 11:55:48 COVID-19, mRNA, LNP-S, PF, 100 mcg/0.5mL dose or 50 mcg/0.25mL dose 12/28/2020 completed Cher Bonner MA [facility], [place] - [facility] 01/22/2024 11:55:48 Past Encounters Encounter ID Performer Location Encounter Start Date Encounter Closed Date Diagnosis/Indication Diagnosis SNOMED-CT Code Diagnosis ICD10 Code Diagnosis IMO Codes Diagnosis Note [id number] MD Ron Gamez (Adult Med) [address] [place] [phone] 04/07/2025 12:03:45 04/07/2025 14:02:57 Overweight in adulthood with body mass index of 25 or more but less than 30 035456878 Z68.26 0208539600 26.5 Essential hypertension 22195173 I10 Palpitations 47254436 R0 0.2 17570 Hyperlipidemia 23097969 E78.5 Stricture of esophagus 85253153 K22.2 35653 [id number] Blu Oconnor MD [facility] (Adult Med) [address] [place] [phone] 05/07/2025 12:15:57 05/07/2025 13:19:07 Overweight in adulthood with body mass index of 25 or more but less than 30 609584368 Z68.26 564528 26.5 Essential hypertension 84119957 I10 Hyperlipidemia 21480140 E78.5 Palpitations 97699928 R0 0.2 60064 Stricture of esophagus 33211051 K22.2 92167 Health Concerns Section Related Observation LastModified by Organization Detai ls LastModified Time None Recorded Concern Status LastModified by Organization Details LastModified Time None Recorded Payers Encounter Date Sequence Insurance Name Policy Number Policy [place] Covered Member ID [place] Member ID Guarantor Name 05/07/2025 2 [place]CON[place] WHEN MEDICARE OR MEDICARE REPLACEMENT PRIMARY) Rona Davis [id number] Rona Davis 05/07/2025 1 [employer] - [place] [employer] (MEDICARE REPLACEMENT/AD VANTAGE - HMO) Rona Davis [id number] Rona Davis Notes Date Note Type Note Provider Name and Address Organization Details Recorded Time 5 text/html Blood pressure improvedPalpitations seem to have resolvedStricture symptomatology she is getting scope next weekEcho we are trying to get the reportHas not done Holter yet Blu Oconnor MD Attn: Accounting,[address] [facility], [place], [address], [facility] 05/07/2025 14:47:07 OBGyn Episode No OBEpisode recorded.
--- OUTSIDE RECORDS SUMMARY | 2025-05-12 01:17 | XMS_ITS | Continuity of Care Document ---
Author Organization [facility] Address [address] [place] [address] Care Team Providers Care Melting Supervisor Name Role Phone BLU OCONNOR Primary Care Provider [phone] ARNULFO ALEX Photography Spotter KAREN TEJADA Orthopedic Surgeon Assessment Encounter Date Assessment Date Assessment LastModified by Organization Details LastModified Time 03/23/2025 03/23/2025 Z-Julio. CBC CMP lipid. Needs EGD for her esophageal stricture. I will have her get a blood pressure check in a week and stop her [id number] er supplements or anything she has been taking for her cough regular follow up 4 months [email or web address] Not available 04/04/2025 16:36:38 Plan of Treatment Reminders Order Date Submit Date Provider Last Modified By Organization Details Last Modified Time Details Appointments ANY 15 2025 11:15A M Blu Oconnor MD Not available Not available Not available Lab CMP, serum or plasma 2024 025 [place] [facility], [address], [place], [address], 03/24/2025 06:21:03 lipid panel, serum 2024 025 [place] [facility], [address], [place], [address], 03/24/2025 06:21:02 CBC w/ auto diff 2024 025 [place] [facility], [address], [place], [address], 03/24/2025 06:21:04 Referral None recorded. Procedures upper endoscopy procedure (EGD) (PROC) 2024 025 ahsan perez MD, [address], [address], [place], [address], 05/03/2025 15:02:01 Surgeries None recorded. Imaging None recorded. Medication Orders Zithromax Z-Julio 250 mg tablet 2024 025 [facility] [facility], [place], [address], 03/30/2025 11:02:48 Patient TargetsNo targets recorded. Patient Instructions Encounter Date Encounter Id Patient Instructions Last Modified By Organization Details Last Modified Time 03/23/2025 [id number] A healthy lifestyle: care instructions [email or web address] Not available 03/23/2025 13:30:20 Reason for Referral None Reported. Results Created Date Observation Date Name Description Value Unit Range Abnormal Flag Note LastModifiedBy Organization Detail LastModifiedTime 03/23/2003/24/2025 LIPID PANEL cholesterol, total 204 mg/dL 100-19 9 above high normal Not Available [facility] ([facility]) [address] [place], [address], 03/24/2025 06:21:02 03/23/2003/24/2025 LIPID PANEL triglyceride s 116 mg/dL 0-149 Not Available [facility] ([facility]) [address] [facility], [place], [address], 03/24/2025 06:21:02 03/23/2003/24/2025 LIPID PANEL HDL cholesterol 66 mg/dL >39 Not Available [facility]) [address] [place], [address], 03/24/2025 06:21:02 03/23/2003/24/2025 LIPID PANEL VLDL cholesterol sylvia 20 mg/dL 5-40 Not Available [facility] ([facility]) [address] [facility], [place], [address], 03/24/2025 06:21:02 03/23/20 25 03/24/2025 LIPID PANEL LDL chol calc ([facility]) 118 mg/dL 0-99 above high normal Not Available [facility] ([facility]) [address] [facility], [place], [address], 03/24/2025 06:21:02 03/23/20 25 03/23/2025 COMP. METAB OLIC PANEL (14) interpretati on: COMMEN T GFR estim ate at the follo wing level for >or=3 month s is class ified as follo ws: GFR WITH KIDNE Y DAMAG E WITHO UT KIDNE Y DAMAG E >or=9 0 Stage 1 Emy l 60-89 Stage 2 Decr eased GFR 30-59 Stage 3 Stage 3 15-29 Stage 4 Stage 4 <15 (or dialy sis) Stage 5 Stage 5 Estim ated GFR will over estim ate true GFR if serum creat inine is risin g as in acute renal failu re and will under estim ate true GFR if serum creat inine is decli yoselyn as in resol ving acute renal failu re. Addit ional infor yenny keen may be found at [email or web address] org. Not Available [facility] ([facility]) [address] [facility], [place], [address], 03/24/2025 06:21:03 03/23/20 25 03/24/2025 COMP. METAB OLIC PANEL (14) glucose 88 mg/dL 70-99 Not Available [facility] ([facility]) [address] [place], [address], 03/24/2025 06:21:03 03/23/20 25 03/24/2025 COMP. METAB OLIC PANEL (14) BUN 18 mg/dL 8-27 Not Available [facility] ([facility]) [address] [place], [address], 03/24/2025 06:21:03 03/23/20 25 03/24/2025 COMP. METAB OLIC PANEL (14) creatinine 0.82 mg/dL 0.57-1 .00 Not Available [facility] ([facility]) [address] [facility], [place], [address], 03/24/2025 06:21:03 03/23/20 25 03/24/2025 COMP. METAB OLIC PANEL (14) eGFR 78 mL/mi n/1.7 3 >59 Not Available [facility] ([facility]) [address] [facility] [place], [address], 03/24/2025 06:21:03 03/23/20 25 03/24/2025 COMP. METAB OLIC PANEL (14) BUN/creatini ne ratio 22 12-28 Not Available [facility] ([facility]) [address] [facility], [place], [address], 03/24/2025 06:21:03 03/23/20 25 03/24/2025 COMP. METAB OLIC PANEL (14) sodium 141 mmol/ L 134-14 4 Not Available [facility] ([facility]) [address] [facility] [place], [address], 03/24/2025 06:21:03 03/23/20 25 03/24/2025 COMP. METAB OLIC PANEL (14) potassium 4.7 mmol/ L 3.5-5. 2 Not Available [facility] ([facility]) [address] [facility] [place], [address], 03/24/2025 06:21:03 03/23/20 25 03/24/2025 COMP. METAB OLIC PANEL (14) chloride 104 mmol/ L 96-106 Not Available [facility] ([facility]) [address] [facility] [place], [address], 03/24/2025 06:21:03 03/23/20 25 03/24/2025 COMP. METAB OLIC PANEL (14) carbon dioxide, total 23 mmol/ L 20-29 Not Available [facility] ([facility]) [address] [facility] [place], [address], 03/24/2025 06:21:03 03/23/20 25 03/24/2025 COMP. METAB OLIC PANEL (14) calcium 10.5 mg/dL 8.7-10 .3 above high normal Not Available [facility] ([facility]) [address] [place], [address], 03/24/2025 06:21:03 03/23/2003/24/2025 COMP. METAB OLIC PANEL (14) protein, total 6.6 g/dL 6.0-8. 5 Not Available [facility] ([facility]) [address] [facility] [place], [address], 03/24/2025 06:21:03 03/23/2003/24/2025 COMP. METAB OLIC PANEL (14) albumin 4.4 g/dL 3.9-4. 9 Not Available [facility] ([facility]) [address] [facility] [place], [address], 03/24/2025 06:21:03 03/23/2003/24/2025 COMP. METAB OLIC PANEL (14) globulin, total 2.2 g/dL 1.5-4. 5 Not Available [facility] ([facility]) [address] [facility] [place], [address], 03/24/2025 06:21:03 03/23/2003/24/2025 COMP. METAB OLIC PANEL (14) bilirubin, total 0.4 mg/dL 0.0-1. 2 Not Available [facility] ([facility]) [address] [facility] [place], [address], 03/24/2025 06:21:03 03/23/20 25 03/24/2025 COMP. METAB OLIC PANEL (14) alkaline phosphatase 66 IU/L 49-135 Not Available [facility] ([facility]) [address] [place], [address], 03/24/2025 06:21:03 03/23/2003/24/2025 COMP. METAB OLIC PANEL (14) AST (SGOT) 23 IU/L 0-40 Not Available [facility] ([facility]) [address] [place], [address], 03/24/2025 06:21:03 03/23/2003/24/2025 COMP. METAB OLIC PANEL (14) ALT (SGPT) 26 IU/L 0-32 Not Available [facility] ([facility]) [address] [facility], [place], [address], 03/24/2025 06:21:03 03/23/20 25 03/23/2025 CBC WITH DIFFE RENTI AL/PL ATELE T WBC 7.8 x10e3 /uL 3.4-10 .8 Not Available [facility] ([facility]) [address] [place], [address], 03/24/2025 06:21:03 03/23/20 25 03/23/2025 CBC WITH DIFFE RENTI AL/PL ATELE T RBC 5.81 x10e6 /uL 3.77-5 .28 above high normal Not Available [facility] ([facility]) [address] [place], [address], 03/24/2025 06:21:03 03/23/2003/23/2025 CBC WITH DIFFE RENTI AL/PL ATELE T hemoglobin 12.8 g/dL 11.1-1 5.9 Not Available [facility] ([facility]) [address] [place], [address], 03/24/2025 06:21:03 03/23/20 25 03/23/2025 CBC WITH DIFFE RENTI AL/PL ATELE T hematocrit 42.3 % 34.0-4 6.6 Not Available [facility] ([facility]) [address] [place], [address], 03/24/2025 06:21:03 03/23/20 25 03/23/2025 CBC WITH DIFFE RENTI AL/PL ATELE T MCV 73 fL 79-97 below low normal Not Available [facility] ([facility]) [address] [place], [address], 03/24/2025 06:21:03 03/23/2003/23/2025 CBC WITH DIFFE RENTI AL/PL ATELE T MCH 22.0 pg 26.6-3 3.0 below low normal Not Available [facility] ([facility]) [address] [place], [address], 03/24/2025 06:21:03 03/23/20 25 03/23/2025 CBC WITH DIFFE RENTI AL/PL ATELE T MCHC 30.3 g/dL 31.5-3 5.7 below low normal Not Available [facility] ([facility]) [address] [place], [address], 03/24/2025 06:21:03 03/23/2003/23/2025 CBC WITH DIFFE RENTI AL/PL ATELE T RDW 15.9 % 11.7-1 5.4 above high normal Not Available [facility] ([facility]) [address] [place], [address], 03/24/2025 06:21:03 03/23/2003/23/2025 CBC WITH DIFFE RENTI AL/PL ATELE T platelets 245 x10e3 /uL 150-45 0 Not Available [facility] ([facility]) [address] [place], [address], 03/24/2025 06:21:03 1003/23/2025 CBC WITH DIFFE RENTI AL/PL ATELE T neutrophils 64 % notest ab. Not Available [facility] ([facility]) [address] [facility], [place], [address], 03/24/2025 06:21:03 03/23/2003/23/2025 CBC WITH DIFFE RENTI AL/PL ATELE T lymphs 24 % notest ab. Not Available [facility] ([facility]) [address] [facility], [place], [address], 03/24/2025 06:21:03 03/23/2003/23/2025 CBC WITH DIFFE RENTI AL/PL ATELE T monocytes 7 % notest ab. Not Available [facility] ([facility]) [address] [facility], [place], [address], 03/24/2025 06:21:03 03/23/2003/23/2025 CBC WITH DIFFE RENTI AL/PL ATELE T eos 4 % notest ab. Not Available [facility] ([facility]) [address] [place], [address], 03/24/2025 06:21:03 03/23/2003/23/2025 CBC WITH DIFFE RENTI AL/PL ATELE T basos 0 % notest ab. Not Available [facility] ([facility]) [address] [facility], [place], [address], 03/24/2025 06:21:03 03/23/2003/23/2025 CBC WITH DIFFE RENTI AL/PL ATELE T neutrophils (absolute) 5.0 x10e3 /uL 1.4-7. 0 Not Available [facility] ([facility]) [address] [facility], [place], [address], 03/24/2025 06:21:03 03/23/20 25 03/23/2025 CBC WITH DIFFE RENTI AL/PL ATELE T lymphs (absolute) 1.9 x10e3 /uL 0.7-3. 1 Not Available [facility] ([facility]) [address] [facility], [place], [address], 03/24/2025 06:21:03 03/23/2003/23/2025 CBC WITH DIFFE RENTI AL/PL ATELE T monocytes(ab solute) 0.5 x10e3 /uL 0.1-0. 9 Not Available [facility] ([facility]) [address] [facility], [place], [address], 03/24/2025 06:21:03 03/23/2003/23/2025 CBC WITH DIFFE RENTI AL/PL ATELE T eos (absolute) 0.3 x10e3 /uL 0.0-0. 4 Not Available [facility] ([facility]) [address] [facility], [place], [address], 03/24/2025 06:21:03 03/23/2003/23/2025 CBC WITH DIFFE RENTI AL/PL ATELE T baso (absolute) 0.0 x10e3 /uL 0.0-0. 2 Not Available [facility] ([facility]) [address] [facility], [place], [address], 03/24/2025 06:21:03 03/23/2003/23/2025 CBC WITH DIFFE RENTI AL/PL ATELE T immature granulocytes 0 % notest ab. Not Available [facility] ([facility]) [address] [facility], [place], [address], 03/24/2025 06:21:03 03/23/2003/23/2025 CBC WITH DIFFE RENTI AL/PL ATELE T immature grans (abs) 0.0 x10e3 /uL 0.0-0. 1 Not Available [facility] ([facility]) [address] [facility], [place], [address], 03/24/2025 06:21:03 04/07/20 elect andria reygr am No observ ation record ed. LOWELL In-Office Order Internal Use Only DO Not Attach Compendium DO Not Attach Compendium, Do Not Delete/merge, [id number] 04/07/2025 15:19:46 04/07/2004/07/2025 elect andria diogr am No observ ation record ed. BARCODE Not Available 2024 16:04:19 05/07/2004/27/2025 , echoc ardio gram No observ ation record ed. [facility] [address], [place], [address], 05/11/2025 15:07:33 Result Notes None recorded. Problems Name Problem SNOMED Code Status Onset Date Resolution Date Notes Provider Name and Address Organization Details Recorded Time Acute urinary tract infection 404560625 Active Eugene abbott, [place] - [facility] 5 10:28:37 Menopause Active 2016 Eugene abbott, [place] - [facility] 7 15:02:06 History of total hysterectomy 897410579 Active 2019 Eugene Ring null, [place] - [facility] 0 11:58:06 Gastroesophage al reflux disease 901715080 Active 2019 Eugene abbott, [place] [facility] 0 12:03:00 Hiatal hernia 33410694 Active 2019 Eugene abbott, [place] [facility] 0 12:03:12 Essential hypertension 58764960 Active [address] [place] null, [place] - [facility] 5 11:56:42 Hyperlipidemia 11495501 Active 2023 Blu Oconnor MD Attn: Juliano gomez,[address] [facility], [place], [address], [place] - [facility] 4 12:25:48 Osteoarthritis 577777473 Active 2023 Blu Oconnor MD Attn: Juliano gomez,[address] [facility], [place], [address], [place] [facility] 4 12:25:49 Pain in left lower limb 548734032 Active 2023 Blu Oconnor MD Attn: Juliano gomez,[address] [facility], [place], [address], [place] - [facility] 4 12:25:50 Chronic rhinitis 26514754 Active 2024 Blu Oconnor MD Attn: Juliano gomez,[address] [facility], [place], [address], [place] - [facility] 5 21:05:20 Stricture of esophagus 07842343 Active [address] [place] [facility], [facility] 5 11:56:42 Problem Notes None recorded. Procedures Surgical History Date Name Laterality Status Provider Name and Address Organization Details Recorded Time 10/26/19 22 Date of Last Mammogram completed Maame Oliva MA [facility] 11/30/2021 10:32:30 06/17/19 13 Date of Last Pap Smear completed Vivienne Gomez MA [facility] 04/19/2016 15:18:17 06/17/19 13 Most Recent Mammogram completed Vivienne Gomez MA [facility] 04/19/2016 15:19:29 Hysterectomy completed Vivienne Gomez MA [facility] 04/19/2016 15:05:14 Esophagoscopy rigid balloon completed Vivienne Gomez MA [facility] 04/19/2016 15:17:50 Imaging Results None recorded. Procedure Notes None recorded. Medical Equipment None Reported. Allergies Allergen ID Allergen Name Allergen Category Reaction Reaction Severity Criticality Documentation Date Start Date Code Code System Note Provider Name and Address Organization Details Recorded Time 216112 Aleve medicatio n wheezing moderate Not available 06/25/20192016 48725 1 RxNorm Eugene Ring null, [place] - [facility] 0 11:59:19 711395 cephalexi n medicatio n chest pain rash mild moderate Not available 10/16/2022 2231 RxNorm Elmira Sellers LPN null, [place] - [facility] 3 12:34:32 831105 sumatript an medicatio n Not available Not available Not available 01/12/2025 74290 RxNorm Davina Saxena [place] null, [place] - [facility] 5 16:01:50 270213 penicilli n V Not available dyspnea severe Not available 04/17/2025 7984 RxNorm Not Available [facility] - External Data [employer] - prod 5 01:34:33 20693 codeine medicatio n respirato ry distress severe Not available 04/19/2016 2670 RxNorm Vivienne Gomez [place] null, [place] - [facility] 6 15:10:14 15520 Product containin g penicilli n (product) medicatio n rash respirato ry distress moderate severe Not available 04/19/2016 44157 8001 SNOMED Vivienne Gomez [place] null, [place] - [facility] 6 15:10:58 Medications Name Sig Start Date [...] Organization Details Last Updated DateTime 165.1 cm 26.5 kg/m2 65066.2 6 g 80 /min 98 % 158/90 mm[Hg] Geetha Gomez MA [facility] 11:16:50 Date Recorded Body height Heart rate Oxygen saturation Systolic And Diastolic Provider Name and Address Organization Details Last Updated DateTime 03/30/2025 165.1 cm 80 /min 98 % 140/84 mm[Hg] Davina Saxena MA [facility] 03/30/2025 10:42:59 Social History Question Answer Notes LastModified by Organizat ion Details LastModified Time Tobacco Smoking Status Never Smoker Vivienne Gomez MA [facility] 04/19/2016 15:11:31 Do You Have An Advance Directive? No Information n ot available 04/19/2016 Are You Blind Or Do You Have Difficulty Seeing? 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 Information not available 04/19/2016 Do you [...] Eating Disorder N Anemia N Heart Attack ([place]) N Ovarian Cancer N Diabetes N Blood [...] Immunizations Vaccine Type Date Status Note Provider Nam e and Address Organization Details Recorded Time COVID-19, mRNA, LNP-S, PF, 100 mcg/0.5mL dose or 50 mcg/0.25mL dose 11/29/2020 completed Cher Bonner MA [facility], [place] - [facility] 01/22/2024 11:55:48 COVID-19, mRNA, LNP-S, PF, 100 mcg/0.5mL dose or 50 mcg/0.25mL dose 12/28/2020 completed Cher Bonner [place] [facility], [place] - [facility] 01/22/2024 11:55:48 Past Encounters Encounter ID Performer Location Encounter Start Date Encounter Closed Date Diagnosis/Indication Diagnosis SNOMED-CT Code Diagnosis ICD10 Code Diagnosis IMO Codes Diagnosis Note [id number] Blu Oconnor MD [facility] ([facility]) [address] [place] [phone] 03/23/2025 11:05:40 03/23/2025 11:55:53 Overweight in adulthood with body mass index of 25 or more but less than 30 831815377 E66.3 Z68.26 8355325845 Essential hypertension 91792300 I10 Stricture of esophagus 39758049 K22.2 33929 Bronchitis 82464156 J40 90552 Hyperlipidemia 76754027 E78.5 Health Concerns Section Related Observation LastModified by Organization Michelle ls LastModified Time None Recorded Concern Status LastModified by Organization Details LastModified Time None Recorded Payers Encounter Date Sequence Insurance Name Policy Number Policy [place] Covered Member ID [place] Member ID Guarantor Name 03/23/2025 2 [place]CON[place] WHEN MEDICARE OR MEDICARE REPLACEMENT PRIMARY) Rona Davis [id number] Rona Davis 03/23/2025 1 [employer] - GOLD PLUS (MEDICARE REPLACEMENT/AD VANTAGE - HMO) Rona Davis [id number] Rona yRan Notes Date Note Type Note Provider Name and Address Organization Details Recorded Time 03/23/2025 text/html Flu-like symptoms about a week ago and she still has a little bit of cough and maybe LD little bit of yellow sinus drainage. Her blood pressure is up a little bit today and she is pretty much asymptomatic from that she does not need her upper endoscopy again because she is starting to feel like her strictures coming back Blu Oconnor MD Attn: Accounting,[address] [place], [address], [facility] 04/04/2025 16:37:37 OBGyn Episode No OBEpisode recorded.
--- OUTSIDE RECORDS SUMMARY | 2025-05-12 01:17 | XMS_ITS | Continuity of Care Document ---
[facility] Address [address] [place] [address] Care Team Providers Care Tableau Developer Name Role Phone BLU OCONONR Primary Care Provider ARNULFO ALEX Supervisor [employer] KAREN TEJADA Orthopedic Surgeon Assessment Encounter Date Assessment Date Assessment LastModified by Organization Details LastModified Time 04/07/2025 04/07/2025 EKG shows a normal sinus rhythm with no acute changes get her set up for an upper endoscopies complete echo to Holter T3-T4 TSH magnesium follow up 1 month [email or web address] Not available 04/10/2025 15:16:49 Plan of Treatment Reminders Order Date Submit Date Provider Last Modified By Organization Details Last Modified Time Details Appointments ANY 15 2025 11:15A Marcela Oconnor MD Not available Not available Not available Lab unlisted lab - T4, free 2024 025 AMARJIT Hood, [address], [place], [address], 04/08/2025 13:12:59 T3, free, serum or plasma 2024 025 AMARJIT Hood, [address]22 [address], [place], [address], 04/08/2025 13:13:01 TSH, ultra-sen sitive, serum 2024 025 AMARJIT Hood, [address], [place], [address], 04/08/2025 13:13:00 magnesium , serum or plasma 2024 UPPER BLACK EDDY [facility], [address], [place], [address], 04/08/2025 13:13:00 Referral None recorded. Procedures None recorded. Surgeries None recorded. Imaging holter monitor - 2wk [facility]ter [email or web address], [address], [place], [address], 05/07/2025 14:10:08 US, echocardi ogram 2024 [facility], [address], [place], [address], 05/07/2025 13:25:19 electroca rdiogram 2024 [email or web address] In-Office Order, Internal Use Only DO Not Attach Compendium DO Not Attach Compendium, Do Not Delete/merge, [id number] 04/08/2025 12:29:13 Medication Orders None recorded. Patient TargetsNo targets recorded. Patient Instructions Encounter Date Encounter Id Patient Instructions Last Modified By Organization Details Last Modified Time 04/07/2025 [id number] A healthy lifestyle: care instructions [email or web address] Not available 04/07/2025 13:57:44 Reason for Referral None Reported. Results Created Date Observation Date Name Description Value Unit Range Abnormal Flag Note LastModifiedBy Organization Detail LastModifiedTime 03/23/2003/24/2025 LIPID PANEL cholesterol, total 204 mg/dL 100-19 9 above high normal Not Available [facility] ([facility]) [address] [facility] [facility], [place], [address], 03/24/2025 06:21:02 03/23/20 25 03/24/2025 LIPID PANEL triglyceride s 116 mg/dL 0-149 Not Available [facility] ([facility]) [address] [facility], [place], [address], 03/24/2025 06:21:02 03/23/2003/24/2025 LIPID PANEL HDL cholesterol 66 mg/dL >39 Not Available [facility] ([facility]) [address] [facility], [place], [address], 03/24/2025 06:21:02 03/23/2003/24/2025 LIPID PANEL VLDL cholesterol sylvia 20 mg/dL 5-40 Not Available [facility] ([facility]) [address] [facility], [place], [address], 03/24/2025 06:21:02 03/23/2003/24/2025 LIPID PANEL LDL chol calc ([facility]) 118 mg/dL 0-99 above high normal Not Available [facility] ([facility]) [address] [facility], [place], [address], 03/24/2025 06:21:02 03/23/2003/23/2025 COMP. METAB OLIC PANEL (14) interpretati on: COMMEN T GFR estim ate at the follo wing level for >or=3 month s is class ified as follo ws: GFR WITH KIDNE Y DAMAG E WITHO UT KIDNE Y DAMAG E >or=9 0 Stage 1 Mey l 60-89 Stage 2 Decr eased GFR [...] at www.k doqi. org. Not Available [facility] ([facility]) [address] [facility], [place], [address], 03/24/2025 06:21:03 03/23/2003/24/2025 COMP. METAB OLIC PANEL (14) glucose 88 mg/dL 70-99 Not Available [facility] ([facility]) [address] [place], [address], 03/24/2025 06:21:03 03/23/20 25 03/24/2025 COMP. METAB OLIC PANEL (14) BUN 18 mg/dL 8-27 Not Available [facility] ([facility]) [address] [place], [address], 03/24/2025 06:21:03 03/23/20 25 03/24/2025 COMP. METAB OLIC PANEL (14) creatinine 0.82 mg/dL 0.57-1 .00 Not Available [facility] ([facility]) [address] [facility], [place], [address], 03/24/2025 06:21:03 03/23/20 25 03/24/2025 COMP. METAB OLIC PANEL (14) eGFR 78 mL/mi n/1.7 3 >59 Not Available [facility] ([facility]) [address], [place], [address], 03/24/2025 06:21:03 03/23/20 25 03/24/2025 COMP. METAB OLIC PANEL (14) BUN/creatini ne ratio 22 12-28 Not Available [facility] ([facility]) [address] [place], [address], 03/24/2025 06:21:03 03/23/20 25 03/24/2025 COMP. METAB OLIC PANEL (14) sodium 141 mmol/ L 134-14 4 Not Available [facility] ([facility]) [address] [place], [address], 03/24/2025 06:21:03 03/23/20 25 03/24/2025 COMP. METAB OLIC PANEL (14) potassium 4.7 mmol/ L 3.5-5. 2 Not Available [facility] ([facility]) [address] [place], [address], 03/24/2025 06:21:03 03/23/20 25 03/24/2025 COMP. METAB OLIC PANEL (14) chloride 104 mmol/ L 96-106 Not Available [facility] ([facility]) [address] [place], [address], 03/24/2025 06:21:03 03/23/20 25 03/24/2025 COMP. METAB OLIC PANEL (14) carbon dioxide, total 23 mmol/ L 20-29 Not Available [facility] ([facility]) [address] [place], [address], 03/24/2025 06:21:03 03/23/20 25 03/24/2025 COMP. METAB OLIC PANEL (14) calcium 10.5 mg/dL 8.7-10 .3 above high normal Not Available [facility] ([facility]) [address] [place], [address], 03/24/2025 06:21:03 03/23/2003/24/2025 COMP. METAB OLIC PANEL (14) protein, total 6.6 g/dL 6.0-8. 5 Not Available [facility] ([facility]) [address] [place], [address], 03/24/2025 06:21:03 03/23/2003/24/2025 COMP. METAB OLIC PANEL (14) albumin 4.4 g/dL 3.9-4. 9 Not Available [facility] ([facility]) [address] [place], [address], 03/24/2025 06:21:03 03/23/2003/24/2025 COMP. METAB OLIC PANEL (14) globulin, total 2.2 g/dL 1.5-4. 5 Not Available [facility] ([facility]) [address] [place], [address], 03/24/2025 06:21:03 03/23/20 25 03/24/2025 COMP. METAB OLIC PANEL (14) bilirubin, total 0.4 mg/dL 0.0-1. 2 Not Available [facility] ([facility]) [address] [facility] [facility], [place], [address], 03/24/2025 06:21:03 03/23/20 25 03/24/2025 COMP. METAB OLIC PANEL (14) alkaline phosphatase 66 IU/L 49-135 Not Available [facility] ([facility]) [address] [place], [address], 03/24/2025 06:21:03 03/23/2003/24/2025 COMP. METAB OLIC PANEL (14) AST (SGOT) 23 IU/L 0-40 Not Available [facility] ([facility]) [address] [place], [address], 03/24/2025 06:21:03 03/23/2003/24/2025 COMP. METAB OLIC PANEL (14) ALT (SGPT) 26 IU/L 0-32 Not Available [facility] ([facility]) [address] [place], [address], 03/24/2025 06:21:03 03/23/2003/23/2025 CBC WITH DIFFE RENTI AL/PL ATELE T WBC 7.8 x10e3 /uL 3.4-10 .8 Not Available [facility] ([facility]) [address] [place], [address], 03/24/2025 06:21:03 03/23/2003/23/2025 CBC WITH DIFFE RENTI AL/PL ATELE T RBC 5.81 x10e6 /uL 3.77-5 .28 above high normal Not Available [facility] ([facility]) [address] [place], [address], 03/24/2025 06:21:03 03/23/20 25 03/23/2025 CBC WITH DIFFE RENTI AL/PL ATELE T hemoglobin 12.8 g/dL 11.1-1 5.9 Not Available [facility] ([facility]) [address] [facility], [place], [address], 03/24/2025 06:21:03 03/23/2003/23/2025 CBC WITH DIFFE RENTI AL/PL ATELE T hematocrit 42.3 % 34.0-4 6.6 Not Available [facility] ([facility]) [address] [place], [address], 03/24/2025 06:21:03 03/23/2003/23/2025 CBC WITH DIFFE RENTI AL/PL ATELE T MCV 73 fL 79-97 below low normal Not Available [facility] ([facility]) [address] [facility], [place], [address], 03/24/2025 06:21:03 03/23/2003/23/2025 CBC WITH DIFFE RENTI AL/PL ATELE T MCH 22.0 pg 26.6-3 3.0 below low normal Not Available [facility] ([facility]) [address] [place], [address], 03/24/2025 06:21:03 03/23/2003/23/2025 CBC WITH DIFFE RENTI AL/PL ATELE T MCHC 30.3 g/dL 31.5-3 5.7 below low normal Not Available [facility] ([facility]) [address] [place], [address], 03/24/2025 06:21:03 03/23/20 25 03/23/2025 CBC WITH DIFFE RENTI AL/PL ATELE T RDW 15.9 % 11.7-1 5.4 above high normal Not Available [facility] ([facility]) [address] [place], [address], 03/24/2025 06:21:03 03/23/20 25 03/23/2025 CBC WITH DIFFE RENTI AL/PL ATELE T platelets 245 x10e3 /uL 150-45 0 Not Available [facility] ([facility]) [address] [facility], [place], [address], 03/24/2025 06:21:03 03/23/2003/23/2025 CBC WITH DIFFE RENTI AL/PL ATELE T neutrophils 64 % notest ab. Not Available [facility] ([facility]) [address] [facility], [place], [address], 03/24/2025 06:21:03 03/23/2003/23/2025 CBC WITH DIFFE RENTI AL/PL ATELE T lymphs 24 % notest ab. Not Available [facility] ([facility]) [address], [place], [address], 03/24/2025 06:21:03 03/23/20 25 03/23/2025 CBC WITH DIFFE RENTI AL/PL ATELE T monocytes 7 % notest ab. Not Available [facility] ([facility]) [address], [place], [address], 03/24/2025 06:21:03 03/23/20 25 03/23/2025 CBC WITH DIFFE RENTI AL/PL ATELE T eos 4 % notest ab. Not Available [facility] ([facility]) [address], [place], [address], 03/24/2025 06:21:03 03/23/2003/23/2025 CBC WITH DIFFE RENTI AL/PL ATELE T basos 0 % notest ab. Not Available [facility] ([facility]) [address], [place], [address], 03/24/2025 06:21:03 03/23/20 25 03/23/2025 CBC WITH DIFFE RENTI AL/PL ATELE T neutrophils (absolute) 5.0 x10e3 /uL 1.4-7. 0 Not Available [facility] ([facility]) [address], [place], [address], 03/24/2025 06:21:03 03/23/20 25 03/23/2025 CBC WITH DIFFE RENTI AL/PL ATELE T lymphs (absolute) 1.9 x10e3 /uL 0.7-3. 1 Not Available [facility] ([facility]) [address], [place], [address], 03/24/2025 06:21:03 03/23/2003/23/2025 CBC WITH DIFFE RENTI AL/PL ATELE T monocytes(ab solute) 0.5 x10e3 /uL 0.1-0. 9 Not Available [facility] ([facility]) [address], [place], [address], 03/24/2025 06:21:03 03/23/20 25 03/23/2025 CBC WITH DIFFE RENTI AL/PL ATELE T eos (absolute) 0.3 x10e3 /uL 0.0-0. 4 Not Available [facility] ([facility]) [address], [place], [address], 03/24/2025 06:21:03 03/23/2003/23/2025 CBC WITH DIFFE RENTI AL/PL ATELE T baso (absolute) 0.0 x10e3 /uL 0.0-0. 2 Not Available [facility] ([facility]) [address] [place], [address], 03/24/2025 06:21:03 03/23/20 25 03/23/2025 CBC WITH DIFFE RENTI AL/PL ATELE T immature granulocytes 0 % notest ab. Not Available [facility] ([facility]) [address] [place], [address], 03/24/2025 06:21:03 03/23/2003/23/2025 CBC WITH DIFFE RENTI AL/PL ATELE T immature grans (abs) 0.0 x10e3 /uL 0.0-0. 1 Not Available [facility] ([facility]) [address] [facility], [place], [address], 03/24/2025 06:21:03 04/07/2004/08/2025 T4, FREE T4,free(dire ct) 1.24 NG/dL 0.82-1 .77 Not Available [facility] ([facility]) [address] [facility], [place], [address], 04/08/2025 13:12:59 04/07/2004/08/2025 MAGNE SIUM magnesium 2.4 mg/dL 1.6-2. 3 above high normal Not Available [facility] ([facility]) [address], [place], [address], 04/08/2025 13:13:00 04/07/2004/08/2025 TSH TSH 0.435 uIU/m L 0.450- 4.500 below low normal Not Available [facility] ([facility]) [address], [place], [address], 04/08/2025 13:13:00 04/07/2004/08/2025 TRIIO DOTHY FELICIA E (T3), FREE triiodothyro nine (T3), free 2.8 pg/mL 2.0-4. 4 Not Available [facility] ([facility]) [address], [place], [address], 04/08/2025 13:13:01 04/07/20 braulio chadwick am No observ ation record ed. AMARJIT In-Office Order Internal Use Only DO Not Attach Compendium DO Not Attach Compendium, Do Not Delete/merge, [id number] 04/07/2025 15:19:46 04/07/2004/07/2025 braulio chadwick am No observ ation record ed. BARCODE Not Available 2024 16:04:19 05/07/2004/27/2025 , stefani easton No observ ation record ed. [facility] [address], [place], [address], 05/11/2025 15:07:33 Result Notes None recorded. Problems Name Problem SNOMED Code Status Onset Date Resolution Date Notes Provider Name and Address Organization Details Recorded Time Acute urinary tract infection 032728336 Active Eugene abbott, [place] - [facility] 5 10:28:37 Menopause Active 2016 [place] abbott, [place] [facility] 7 15:02:06 History of total hysterectomy 661174465 Active 2019 [place] abbott[place] [facility] 0 11:58:06 Gastroesophage al reflux disease 671929466 Active 2019 [place] abbott[place] [facility] 0 12:03:00 Hiatal hernia 81423058 Active 2019 [place] abbott[place] [facility] 0 12:03:12 Essential hypertension 44009181 Active [address] [place] null, [place] - [facility] 5 11:56:42 Hyperlipidemia 64514401 Active 2023 Blu Oconnor MD Attn: Juliano gomez,[address] [facility], [place], [address], [place] - [facility] 4 12:25:48 Osteoarthritis 625662263 Active 2023 Blu Oconnor MD Attn: Juliano gomez,[address] [facility], [place], [address], [place] [facility] 4 12:25:49 Pain in left lower limb 188690427 Active 2023 Blu Oconnor MD Attn: Juliano gomez,[address] [facility], [place], [address], [place] - [facility] 4 12:25:50 Chronic rhinitis 10405420 Active 2024 Blu Oconnor MD Attn: Juliano gomez,[address], [place], [address], [place] - [facility] 5 21:05:20 Stricture of esophagus 13644625 Active [address] [place] null, [place] - [facility] 5 11:56:42 Problem Notes None recorded. Procedures Surgical History Date Name Laterality Status Provider Name and Address Organization Details Recorded Time 10/26/19 22 Date of Last Mammogram completed Maame Oliva [place] [facility] 11/30/2021 10:32:30 06/17/19 13 Date of Last Pap Smear completed Vivienne Gomez [place] [facility] 04/19/2016 15:18:17 06/17/19 13 Most Recent Mammogram completed Vivienne Gomez [place] [facility] 04/19/2016 15:19:29 Hysterectomy completed Vivienne Gomez [place] [facility] 04/19/2016 15:05:14 Esophagoscopy rigid balloon completed Vivienne Gomez [place] [facility] 04/19/2016 15:17:50 Imaging Results None recorded. Procedure Notes None recorded. Medical Equipment None Reported. Allergies Allergen ID Allergen Name Allergen Category Reaction Reaction Severity Criticality Documentation Date Start Date Code Code System Note Provider Name and Address Organization Details Recorded Time 670175 Aleve medicatio n wheezing moderate Not available 06/25/20192016 39773 1 RxNorm Eugene Ring null, [place] [facility] 0 11:59:19 137736 cephalexi n medicatio n chest pain rash mild moderate Not available 10/16/2022 2231 RxNorm Elmira Sellers LPN null, [place] [facility] 3 12:34:32 328918 sumatript an medicatio n Not available Not available Not available 01/12/2025 21540 RxNorm Davina Saxena [place] null, [place] - [facility] 5 16:01:50 914091 penicilli n V Not available dyspnea severe Not available 04/17/2025 7984 RxNorm Not Available amarjit - External Data Service - prod 5 01:34:33 61999 codeine medicatio n respirato ry distress severe Not available 04/19/2016 2670 RxNorm CHRISTIN Sykes, [facility] 6 15:10:14 15581 Product containin g penicilli n (product) medicatio n rash respirato ry distress moderate severe Not available 04/19/2016 82732 8001 SNOMED CHRISTIN Sykes, [facility] 6 15:10:58 Medications Name Sig Start Date Stop Date Status Note LastModified by Organization Details LastModified Time sumatript an succinate 50 mg tabs 06/25 completed Not Available Not Available Not Available topiramat e 50 mg tabs 06/25 completed [...] Last Updated DateTime 165.1 cm 26.5 kg/m2 27842.1 9 g 74 /min 98 % 124/78 mm[Hg] Davina Saxena MA [facility] 5 13:53:43 Social History Question Answer Notes LastModified by Organizat ion Details LastModified Time Tobacco Smoking Status Never Smoker Vivienne Gomez MA [facility], [place] - [facility] 04/19/2016 15:11:31 Do You Have An Advance [...] available 06/25/2019 Are you currently employed? Yes [email or web address] Information not available 04/19/2016 Are you able to care for yourself independently? 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 [email or web address] Information not available 04/19/2016 Do you or [...] Eating Disorder N Anemia N Heart Attack (DE) N Ovarian Cancer N Diabetes N Blood [...] dose 11/29/2020 completed Cher Bonner [place] null, [place] [facility] 01/22/2024 11:55:48 COVID-19, mRNA, LNP-S, PF, 100 mcg/0.5mL dose or 50 mcg/0.25mL dose 12/28/2020 completed CHRISTIN Haque, [place] - [facility] 01/22/2024 11:55:48 Past Encounters Encounter ID Performer Location Encounter Start Date Encounter Closed Date Diagnosis/Indication Diagnosis SNOMED-CT Code Diagnosis ICD10 Code Diagnosis IMO Codes Diagnosis Note [id number] [facility] [address] [place] [phone] 03/23/2025 11:05:40 03/23/2025 11:55:53 Overweight in adulthood with body mass index of 25 or more but less than 30 789734242 E66.3 Z68.26 1062711385 Essential hypertension 16720652 I10 Stricture of esophagus 65707079 K22.2 69538 Bronchitis 61080121 J40 61510 Hyperlipidemia 93725657 E78.5 [id number] MD Ron Gamez (Adult Med) [address] [place] [phone] 03/30/2025 10:28:16 03/30/2025 15:33:10 Blood pressure taking 26822314 Z01.30 [id number] MD Ron Gamez (Adult Med) [address] [place] [phone] 04/07/2025 12:03:45 04/07/2025 14:02:57 Overweight in adulthood with body mass index of 25 or more but less than 30 271874123 Z68.26 5028264887 26.5 Essential hypertension 44303144 I10 Palpitations 87671296 R0 0.2 10532 Hyperlipidemia 50000921 E78.5 Stricture of esophagus 60640058 K22.2 36554 Health Concerns Section Related Observation LastModified by Organization Detai ls LastModified Time None Recorded Concern Status LastModified by Organization Details LastModified Time None Recorded Payers Encounter Date Sequence Insurance Name Policy Number Policy [place] Covered Member ID [place] Member ID Guarantor Name 04/07/2025 2 [place] WHEN MEDICARE OR MEDICARE REPLACEMENT PRIMARY) Rona Davis [id number] Rona Davis 04/07/2025 1 [employer] - [place]OLD PLUS (MEDICARE REPLACEMENT/AD VANTAGE - HMO) Rona Davis [id number] Rona Davis Notes Date Note Type Note Provider Name and Address Organization Details Recorded Time 04/07/2025 text/html Hypertension blood pressure better now she describes a little bit of palpitations in her upper chest when she lies down at night no dizziness or feeling like she is going to pass out also feels like her esophageal stricture is worse Blu Oconnor MD Attn: Accounting,[address] [facility], [place], [address], [facility] 04/10/2025 15:17:08 OBGyn Episode No OBEpisode recorded.
--- OUTSIDE RECORDS SUMMARY | 2025-05-12 01:17 | XMS_ITS | Continuity of Care Document ---
Author Organization [facility] Ron CARDOZA (Adult Med) Address [address] [place] [address] Care Team Providers Care Band Saw Marker Name Role Phone BLU OCONNOR Primary Care Provider ARNULFO ALEX Sharepoint Application Developer KAREN TEJADA Orthopedic Surgeon Assessment No assessment recorded. Plan of Treatment Reminders Order Date Submit Date Provider Last Modified By Organization Details Last Modified Time Details Appointments ANY 15 026 11:15AM Blu Oconnor MD Not available Not available Not available Lab None record ed. Referral None record ed. Procedures None record ed. Surgeries None record ed. Imaging None record ed. Medication Orders None record ed. Patient TargetsNo targets recorded. Patient InstructionsNo instructions recorded. Reason for Referral None Reported. Results Created Date Observation Date Name Description Value Unit Range Abnormal Flag Note LastModifiedBy Organization Detail LastModifiedTime 03/23/2003/24/2025 LIPID PANEL cholesterol, total 204 mg/dL 100-19 9 above high normal Not Available [facility] ([facility]) [address] [facility], [place], [address], 03/24/2025 06:21:02 03/23/2003/24/2025 LIPID PANEL triglyceride s 116 mg/dL 0-149 Not Available [facility] ([facility]) [address] [facility] [facility], [place], [address], 03/24/2025 06:21:02 03/23/20 25 03/24/2025 LIPID PANEL HDL cholesterol 66 mg/dL >39 Not Available [facility] ([facility]) [address] [facility], [place], [address], 03/24/2025 06:21:02 03/23/2003/24/2025 LIPID PANEL VLDL cholesterol sylvia 20 mg/dL 5-40 Not Available [facility] ([facility]) [address] [facility], [place], [address], 03/24/2025 06:21:02 03/23/2003/24/2025 LIPID PANEL LDL chol calc ([facility]) 118 mg/dL 0-99 above high normal Not Available [facility] ([facility]) [address] [facility], [place], [address], 03/24/2025 06:21:02 03/23/2003/23/2025 COMP. METAB OLIC PANEL [...] at [email or web address] org. Not Available [facility] ([facility]) [address] [facility], [place], [address], 03/24/2025 06:21:03 03/23/2003/24/2025 COMP. METAB OLIC PANEL (14) glucose 88 mg/dL 70-99 Not Available [facility] ([facility]) [address] [facility] [facility], [place], [address], 03/24/2025 06:21:03 03/23/20 25 03/24/2025 COMP. METAB OLIC PANEL (14) BUN 18 mg/dL 8-27 Not Available [facility] ([facility]) [address] [facility], [place], [address], 03/24/2025 06:21:03 03/23/20 25 03/24/2025 COMP. METAB OLIC PANEL (14) creatinine 0.82 mg/dL 0.57-1 .00 Not Available [facility] ([facility]) [address] [facility], [place], [address], 03/24/2025 06:21:03 03/23/2003/24/2025 COMP. METAB OLIC PANEL (14) eGFR 78 mL/mi n/1.7 3 >59 Not Available [facility] ([facility]) [address] [facility] [facility], [place], [address], 03/24/2025 06:21:03 03/23/20 25 03/24/2025 COMP. METAB OLIC PANEL (14) BUN/creatini ne ratio 22 12-28 Not Available [facility] ([facility]) [address] [facility] [facility], [place], [address], 03/24/2025 06:21:03 03/23/20 25 03/24/2025 COMP. METAB OLIC PANEL (14) sodium 141 mmol/ L 134-14 4 Not Available [facility] ([facility]) [address] [facility], [place], [address], 03/24/2025 06:21:03 03/23/20 25 03/24/2025 COMP. METAB OLIC PANEL (14) potassium 4.7 mmol/ L 3.5-5. 2 Not Available [facility] ([facility]) [address] [facility], [place], [address], 03/24/2025 06:21:03 03/23/20 25 03/24/2025 COMP. METAB OLIC PANEL (14) chloride 104 mmol/ L 96-106 Not Available [facility] ([facility]) [address] [place], [address], 03/24/2025 06:21:03 03/23/2003/24/2025 COMP. METAB OLIC PANEL (14) carbon dioxide, total 23 mmol/ L 20-29 Not Available [facility] ([facility]) [address] [place], [address], 03/24/2025 06:21:03 03/23/2003/24/2025 COMP. METAB OLIC PANEL (14) calcium 10.5 mg/dL 8.7-10 .3 above high normal Not Available [facility] ([facility]) [address] [facility], [place], [address], 03/24/2025 06:21:03 03/23/2003/24/2025 COMP. METAB OLIC PANEL (14) protein, total 6.6 g/dL 6.0-8. 5 Not Available [facility] ([facility]) [address] [place], [address], 03/24/2025 06:21:03 03/23/2003/24/2025 COMP. METAB OLIC PANEL (14) albumin 4.4 g/dL 3.9-4. 9 Not Available [facility] ([facility]) [address] [place], [address], 03/24/2025 06:21:03 03/23/2003/24/2025 COMP. METAB OLIC PANEL (14) globulin, total 2.2 g/dL 1.5-4. 5 Not Available [facility] ([facility]) [address] [place], [address], 03/24/2025 06:21:03 03/23/2003/24/2025 COMP. METAB OLIC PANEL (14) bilirubin, total 0.4 mg/dL 0.0-1. 2 Not Available [facility] ([facility]) [address] [facility], [place], [address], 03/24/2025 06:21:03 03/23/2003/24/2025 COMP. METAB OLIC PANEL (14) alkaline phosphatase 66 IU/L 49-135 Not Available [facility] ([facility]) [address] [facility], [place], [address], 03/24/2025 06:21:03 03/23/2003/24/2025 COMP. METAB OLIC PANEL (14) AST (SGOT) 23 IU/L 0-40 Not Available [facility] ([facility]) [address] [facility], [place], [address], 03/24/2025 06:21:03 03/23/2003/24/2025 COMP. METAB OLIC PANEL (14) ALT (SGPT) 26 IU/L 0-32 Not Available [facility] ([facility]) [address] [facility], [place], [address], 03/24/2025 06:21:03 03/23/2003/23/2025 CBC WITH DIFFE RENTI AL/PL ATELE T WBC 7.8 x10e3 /uL 3.4-10 .8 Not Available [facility] ([facility]) [address] [facility], [place], [address], 03/24/2025 06:21:03 03/23/2003/23/2025 CBC WITH DIFFE RENTI AL/PL ATELE T RBC 5.81 x10e6 /uL 3.77-5 .28 above high normal Not Available [facility] ([facility]) [address] [facility], [place], [address], 03/24/2025 06:21:03 03/23/20 25 03/23/2025 CBC WITH DIFFE RENTI AL/PL ATELE T hemoglobin 12.8 g/dL 11.1-1 5.9 Not Available [facility] ([facility]) [address] [facility], [place], [address], 03/24/2025 06:21:03 03/23/2003/23/2025 CBC WITH DIFFE RENTI AL/PL ATELE T hematocrit 42.3 % 34.0-4 6.6 Not Available [facility] ([facility]) [address] [facility], [place], [address], 03/24/2025 06:21:03 03/23/20 25 03/23/2025 CBC WITH DIFFE RENTI AL/PL ATELE T MCV 73 fL 79-97 below low normal Not Available [facility] ([facility]) [address] [facility], [place], [address], 03/24/2025 06:21:03 03/23/20 25 03/23/2025 CBC WITH DIFFE RENTI AL/PL ATELE T MCH 22.0 pg 26.6-3 3.0 below low normal Not Available [facility] ([facility]) [address] [place], [address], 03/24/2025 06:21:03 03/23/2003/23/2025 CBC WITH DIFFE RENTI AL/PL ATELE T MCHC 30.3 g/dL 31.5-3 5.7 below low normal Not Available [facility] ([facility]) [address] [place], [address], 03/24/2025 06:21:03 03/23/2003/23/2025 CBC WITH DIFFE RENTI AL/PL ATELE T RDW 15.9 % 11.7-1 5.4 above high normal Not Available [facility] ([facility]) [address] [place], [address], 03/24/2025 06:21:03 03/23/20 25 03/23/2025 CBC WITH DIFFE RENTI AL/PL ATELE T platelets 245 x10e3 /uL 150-45 0 Not Available [facility] ([facility]) [address] [facility], [place], [address], 03/24/2025 06:21:03 03/23/20 25 03/23/2025 CBC WITH DIFFE RENTI AL/PL ATELE T neutrophils 64 % notest ab. Not Available [facility] ([facility]) [address] [facility], [place], [address], 03/24/2025 06:21:03 03/23/2003/23/2025 CBC WITH DIFFE RENTI AL/PL ATELE T lymphs 24 % notest ab. Not Available [facility] ([facility]) [address] [facility], [place], [address], 03/24/2025 06:21:03 03/23/20 25 03/23/2025 CBC WITH DIFFE RENTI AL/PL ATELE T monocytes 7 % notest ab. Not Available [facility] ([facility]) [address] [facility], [place], [address], 03/24/2025 06:21:03 03/23/2003/23/2025 CBC WITH DIFFE RENTI AL/PL ATELE T eos 4 % notest ab. Not Available [facility] ([facility]) [address] [facility], [place], [address], 03/24/2025 06:21:03 03/23/20 25 03/23/2025 CBC WITH DIFFE RENTI AL/PL ATELE T basos 0 % notest ab. Not Available [facility] ([facility]) [address] [facility], [place], [address], 03/24/2025 06:21:03 03/23/20 25 03/23/2025 CBC WITH DIFFE RENTI AL/PL ATELE T neutrophils (absolute) 5.0 x10e3 /uL 1.4-7. 0 Not Available [facility] ([facility]) [address] [facility], [place], [address], 03/24/2025 06:21:03 03/23/20 25 03/23/2025 CBC WITH DIFFE RENTI AL/PL ATELE T lymphs (absolute) 1.9 x10e3 /uL 0.7-3. 1 Not Available [facility] ([facility]) [address] [facility], [place], [address], 03/24/2025 06:21:03 03/23/20 25 03/23/2025 CBC WITH DIFFE RENTI AL/PL ATELE T monocytes(ab solute) 0.5 x10e3 /uL 0.1-0. 9 Not Available [facility] ([facility]) [address] [facility], [place], [address], 03/24/2025 06:21:03 03/23/20 25 03/23/2025 CBC WITH DIFFE RENTI AL/PL ATELE T eos (absolute) 0.3 x10e3 /uL 0.0-0. 4 Not Available [facility] ([facility]) [address] [facility], [place], [address], 03/24/2025 06:21:03 03/23/20 25 03/23/2025 CBC WITH DIFFE RENTI AL/PL ATELE T baso (absolute) 0.0 x10e3 /uL 0.0-0. 2 Not Available [facility] ([facility]) [address] [facility], [place], [address], 03/24/2025 06:21:03 03/23/20 25 03/23/2025 CBC WITH DIFFE RENTI AL/PL ATELE T immature granulocytes 0 % notest ab. Not Available [facility] ([facility]) [address] [facility], [place], [address], 03/24/2025 06:21:03 03/23/20 25 03/23/2025 CBC WITH DIFFE RENTI AL/PL ATELE T immature grans (abs) 0.0 x10e3 /uL 0.0-0. 1 Not Available [facility] ([facility]) [address], [place], [address], 03/24/2025 06:21:03 04/07/20 elect rocar diogr am No observ ation record ed. LOWELL In-Office Order Internal Use Only DO Not Attach Compendium DO Not Attach Compendium, Do Not Delete/merge, [id number] 04/07/2025 15:19:46 04/07/2004/07/2025 elect rocar diogr am No observ ation record ed. BARCODE Not Available 2024 16:04:19 05/07/2004/27/2025 , [facility] ardio gram No observ ation record ed. [facility] [address], [place], [address], 05/11/2025 15:07:33 Result Notes None recorded. Problems Name Problem SNOMED Code Status Onset Date Resolution Date Notes Provider Name and Address Organization Details Recorded Time Acute urinary tract infection 152902667 Active Eugene Ring null, [place] - [facility] 5 10:28:37 Menopause Active 2016 Eugene MontañoMaría Elena [place], [place] - [facility] 7 15:02:06 History of total hysterectomy 964161319 Active 2019 Eugene MontañoMaría Elena [place], [place] - [facility] 0 11:58:06 Gastroesophage al reflux disease 064417710 Active 2019 Eugene MontañoMaría Elena [place] - [facility] 0 12:03:00 Hiatal hernia 28755832 Active 2019 Eugene MontañoMaría Elena [place] - [facility] 0 12:03:12 Essential hypertension 01271339 Active [address] [place] null, [place] - [facility] 5 11:56:42 Hyperlipidemia 15215126 Active 2023 Blu Oconnor MD Attn: Juliano gomez,[address], [place], [address], [place] - [facility] 4 12:25:48 Osteoarthritis 068752871 Active 2023 Blu Oconnor MD Attn: Juliano gomez,[address] [facility], [place], [address], [facility] 4 12:25:49 Pain in left lower limb 516174692 Active 2023 Blu Oconnor MD Attn: Juliano gomez,[address] [place], [address], [facility] 4 12:25:50 Chronic rhinitis 34912371 Active 2024 Blu Oconnor MD Attn: Juliano gomez,[address] [place], [address], [facility] 5 21:05:20 Stricture of esophagus 39888427 [facility] 11:56:42 Problem Notes None recorded. Procedures Surgical History Date Name Laterality Status Provider Name and Address Organization Details Recorded Time 10/26/19 22 Date of Last Mammogram completed Maame Oliva MA [facility] 11/30/2021 10:32:30 06/17/19 13 Date of Last Pap Smear completed Vivienne Gomez MA [facility] 04/19/2016 15:18:17 06/17/19 13 Most Recent Mammogram completed Vivienne Gomez MA [facility] 04/19/2016 15:19:29 Hysterectomy completed Vivienne Gomez MA [facility] 04/19/2016 15:05:14 Esophagoscopy rigid balloon completed Vivienne Gomez MA [facility] 04/19/2016 15:17:50 Imaging Results None recorded. Procedure Notes None recorded. Medical Equipment None Reported. Allergies Allergen ID Allergen Name Allergen Category Reaction Reaction Severity Criticality Documentation Date Start Date Code Code System Note Provider Name and Address Organization Details Recorded Time 004118 Aleve medicatio n wheezing moderate Not available 06/25/20192016 61483 1 RxNorm Eugene Ring milena [place] - [facility] 0 11:59:19 683005 cephalexi n medicatio n chest pain rash mild moderate Not available 10/16/2022 2231 RxNorm [place] BAILEE Sellers null, [place] - [facility] 3 12:34:32 790875 sumatript an medicatio n Not available Not available Not available 01/12/2025 05591 RxNorm Davina Saxena [place] null, [place] - [facility] 5 16:01:50 584369 penicilli n V Not available dyspnea severe Not available 04/17/2025 7984 RxNorm Not Available [employer] - External Data Service - prod 5 01:34:33 95561 codeine medicatio n respirato ry distress severe Not available 04/19/2016 2670 RxNorm Vivienne Gomez [place] null, [place] - [facility] 6 15:10:14 48469 Product containin g penicilli n (product) medicatio n rash respirato ry distress moderate severe Not available 04/19/2016 56899 8001 SNOMED Vivienne Gomez [place] null, [place] [...] Not Available Vitals Date Recorded Body height Heart rate Oxygen saturation Systolic And Diastolic Provider Name and Address Organization Details Last Updated DateTime 03/30/2025 165.1 cm 80 /min 98 % 140/84 mm[Hg] Davina Saxena [place] - [facility] 03/30/2025 10:42:59 Social History Question Answer Notes LastModified by Organizat ion Details LastModified Time Tobacco Smoking Status Never Smoker Vivienne Gomez [place] null, [place] - [facility] 04/19/2016 15:11:31 Do You Have An [...] not available 07/21/2024 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 N Abuse/Domestic Violence N Asthma N Allergies Y Have you had a PSA blood test [...] mcg/0.25mL dose 12/28/2020 completed Cher Bonner [place] null, [place] - [facility] 01/22/2024 11:55:48 Past Encounters Encounter ID Performer Location Encounter Start Date Encounter Closed Date Diagnosis/Indication Diagnosis SNOMED-CT Code Diagnosis ICD10 Code Diagnosis IMO Codes Diagnosis Note [id number] Blu Oconnor MD [facility] (Adult Med) [address] [place] [phone] 03/23/2025 11:05:40 03/23/2025 11:55:53 Overweight in adulthood with body mass index of 25 or more but less than 30 474606513 E66.3 Z68.26 8376790979 Essential hypertension 50650097 I10 Stricture of esophagus 48080122 K22.2 77672 Bronchitis 31815814 J40 60879 Hyperlipidemia 11634794 E78.5 [id number] Blu Oconnor MD [facility] (Adult Med) [address] [place] [phone] 03/30/2025 10:28:16 03/30/2025 15:33:10 Blood pressure taking 35043369 Z01.30 166321 Health Concerns Section Related Observation LastModified by Organization Detai ls LastModified Time None Recorded Concern Status LastModified by Organization Details LastModified Time None Recorded Payers Encounter Date Sequence Insurance Name Policy Number Policy [place] Covered Member ID [place] Member ID Guarantor Name 03/30/2025 2 [place] WHEN MEDICARE OR MEDICARE REPLACEMENT PRIMARY) Rona Davis [id number] Rona Davis 03/30/2025 1 [employer] - GOLD PLUS (MEDICARE REPLACEMENT/AD VANTAGE - HMO) Rona Davis [id number] Rona Davis OBGyn Episode No OBEpisode recorded.
--- OUTSIDE RECORDS SUMMARY | 2025-05-12 01:18 | XMS_ITS | Data Portability ---
Author Organization [facility] Address [address] [place] [address] Care Team Providers Care Locate Technician Name Role Phone BLU OCONNOR Primary Care Provider [phone] ARNULFO ALEX [employer] Specialist KAREN TEJADA Orthopedic Surgeon [phone] Assessment Encounter Date Assessment Date Assessment LastModified by Organization Details LastModified Time 01/12/2025 01/12/2025 We will continue current therapy we will follow up 6 months' time [email or web address] Not available 01/12/2025 21:05:29 03/23/2025 03/23/2025 Z-Julio. CBC CMP lipid. Needs EGD for her esophageal stricture. I will have her get a blood pressure check in a week and stop her idic-cob-fcbsp er supplements or anything she has been taking for her cough regular follow up 4 months [email or web address] Not available 04/04/2025 16:36:38 04/07/2025 04/07/2025 EKG shows a normal sinus rhythm with no acute changes get her set up for an upper endoscopies complete echo to Holter T3-T4 TSH magnesium follow up 1 month Not available 04/10/2025 15:16:49 05/07/2025 05/07/2025 Blood pressure is much better she feels much better so she has not felt this good in awhile she is holding off on scheduling of the other testing until she gets what is already ordered done she will see me in 3 months Not available 05/07/2025 14:46:12 Plan of Treatment Reminders Order Date Submit Date Provider Last Modified By Organization Details Last Modified Time Details Appointments ANY 15 2025 11:15A M Blu Oconnor MD Not available Not available Not available Lab unlisted lab - T4, free 2024 [facility], [address], [place], [address], 04/08/2025 13:12:59 T3, free, serum or plasma 2024 [facility], [address], [place], [address], 04/08/2025 13:13:01 TSH, ultra-sen sitive, serum 2024 [facility], [address], [place], [address], 04/08/2025 13:13:00 magnesium , serum or plasma 2024 [facility], [address], [place], [address], 04/08/2025 13:13:00 CMP, serum or plasma 2024 [facility], [address], [place], [address], 03/24/2025 06:21:03 lipid panel, serum 2024 [facility], [address], [place], [address], 03/24/2025 06:21:02 CBC w/ auto diff 2024 [facility], [address], [place], [address], 03/24/2025 06:21:04 Referral None recorded. Procedures upper endoscopy procedure (EGD) (PROC) 2024 025 ahsan perez MD, [address], [address], [place], [address], 05/03/2025 15:02:01 Surgeries None recorded. Imaging holter monitor - 2wk holter 2024 025 cyahlma [facility], [address] [facility] [address], [place], [address], 05/07/2025 14:10:08 US, echocardi ogram 2024 025 [facility], [address] [facility] [address], [place], [address], 05/07/2025 13:25:19 electroca rdiogram 2024 025 [email or web address] In-Office Order, Internal Use Only DO Not Attach Compendium DO Not Attach Compendium, Do Not Delete/merge, [id number] 04/08/2025 12:29:13 Medication Orders Zithromax Z-Julio 250 mg tablet 2024 [facility], [address] [facility], [place], [address], 03/30/2025 11:02:48 Patient TargetsNo targets recorded. Patient Instructions Encounter Date Encounter Id Patient Instructions Last Modified By Organization Details Last Modified Time 01/12/2025 [id number] eating healthy foods: care instructions [email or web address] Not available 01/12/2025 17:55:09 03/23/2025 [id number] A healthy lifestyle: care instructions [email or web address] Not available 03/23/2025 13:30:20 04/07/2025 [id number] A healthy lifestyle: care instructions [email or web address] Not available 04/07/2025 13:57:44 05/07/2025 [id number] A healthy lifestyle: care instructions [email or web address] Not available 05/07/2025 13:10:14 Reason for Referral None Reported. Results Created Date Observation Date Name Description Value Unit Range Abnormal Flag Note LastModifiedBy Organization Detail LastModifiedTime 03/23/2003/24/2025 LIPID PANEL cholesterol, total 204 mg/dL 100-19 9 above high normal Not Available [facility] ([facility]) [address] [place], [address], 03/24/2025 06:21:02 03/23/2003/24/2025 LIPID PANEL triglyceride s 116 mg/dL 0-149 Not Available [facility] ([facility]) [address] [place], [address], 03/24/2025 06:21:02 03/23/2003/24/2025 LIPID PANEL HDL cholesterol 66 mg/dL >39 Not Available [facility] ([facility]) [address] [place], [address], 03/24/2025 06:21:02 03/23/2003/24/2025 LIPID PANEL VLDL cholesterol sylvia 20 mg/dL 5-40 Not Available [facility] ([facility]) [address] [place], [address], 03/24/2025 06:21:02 03/23/2003/24/2025 LIPID PANEL LDL chol calc ([facility]) 118 mg/dL 0-99 above high normal Not Available [facility] ([facility]) [address] [place], [address], 03/24/2025 06:21:02 03/23/2003/23/2025 COMP. METAB OLIC PANEL [...] resol ving acute renal failu re. Addit kevin flemingr yenny keen may be found at [email or web address] org. Not Available [facility] ([facility]) [address] [facility], [place], [address], 03/24/2025 06:21:03 03/23/2003/24/2025 COMP. METAB OLIC PANEL (14) glucose 88 mg/dL 70-99 Not Available [facility] ([facility]) [address] [facility], [place], [address], 03/24/2025 06:21:03 03/23/2003/24/2025 COMP. METAB OLIC PANEL (14) BUN 18 mg/dL 8-27 Not Available [facility] ([facility]) [address] [facility], [place], [address], 03/24/2025 06:21:03 03/23/20 25 03/24/2025 COMP. METAB OLIC PANEL (14) creatinine 0.82 mg/dL 0.57-1 .00 Not Available [facility] ([facility]) [address] [facility], [place], [address], 03/24/2025 06:21:03 03/23/20 25 03/24/2025 COMP. METAB OLIC PANEL (14) eGFR 78 mL/mi n/1.7 3 >59 Not Available [facility] ([facility]) [address] [facility], [place], [address], 03/24/2025 06:21:03 03/23/2003/24/2025 COMP. METAB OLIC PANEL (14) BUN/creatini ne ratio 22 12-28 Not Available [facility] ([facility]) [address] [place], [address], 03/24/2025 06:21:03 10/07/03/24/2025 COMP. METAB OLIC PANEL (14) sodium 141 mmol/ L 134-14 4 Not Available [facility] ([facility]) [address] [facility] [place], [address], 03/24/2025 06:21:03 03/23/20 25 03/24/2025 COMP. METAB OLIC PANEL (14) potassium 4.7 mmol/ L 3.5-5. 2 Not Available [facility] ([facility]) [address] [facility] [place], [address], 03/24/2025 06:21:03 03/23/2003/24/2025 COMP. METAB OLIC PANEL (14) chloride 104 mmol/ L 96-106 Not Available [facility] ([facility]) [address] [facility] [place], [address], 03/24/2025 06:21:03 03/23/2003/24/2025 COMP. METAB OLIC PANEL (14) carbon dioxide, total 23 mmol/ L 20-29 Not Available [facility] ([facility]) [address] [facility] [place], [address], 03/24/2025 06:21:03 03/23/2003/24/2025 COMP. METAB OLIC PANEL (14) calcium 10.5 mg/dL 8.7-10 .3 above high normal Not Available [facility] ([facility]) [address] [place], [address], 03/24/2025 06:21:03 03/23/2003/24/2025 COMP. METAB OLIC PANEL (14) protein, total 6.6 g/dL 6.0-8. 5 Not Available [facility] ([facility]) [address] [facility] [place], [address], 03/24/2025 06:21:03 03/23/20 25 03/24/2025 COMP. METAB OLIC PANEL (14) albumin 4.4 g/dL 3.9-4. 9 Not Available [facility] ([facility]) [address] [facility], [place], [address], 03/24/2025 06:21:03 03/23/20 25 03/24/2025 COMP. METAB OLIC PANEL (14) globulin, total 2.2 g/dL 1.5-4. 5 Not Available [facility] ([facility]) [address] [facility], [place], [address], 03/24/2025 06:21:03 03/23/20 25 03/24/2025 COMP. METAB OLIC PANEL (14) bilirubin, total 0.4 mg/dL 0.0-1. 2 Not Available [facility] ([facility]) [address] [facility], [place], [address], 03/24/2025 06:21:03 03/23/20 25 03/24/2025 COMP. METAB OLIC PANEL (14) alkaline phosphatase 66 IU/L 49-135 Not Available [facility] ([facility]) [address] [facility], [place], [address], 03/24/2025 06:21:03 03/23/20 25 03/24/2025 COMP. METAB OLIC PANEL (14) AST (SGOT) 23 IU/L 0-40 Not Available [facility] ([facility]) [address] [facility], [place], [address], 03/24/2025 06:21:03 03/23/20 25 03/24/2025 COMP. METAB OLIC PANEL (14) ALT (SGPT) 26 IU/L 0-32 Not Available [facility] ([facility]) [address] [place], [address], 03/24/2025 06:21:03 03/23/20 25 03/23/2025 CBC WITH DIFFE RENTI AL/PL ATELE T WBC 7.8 x10e3 /uL 3.4-10 .8 Not Available [facility] ([facility]) [address] [facility], [place], [address], 03/24/2025 06:21:03 03/23/2003/23/2025 CBC WITH DIFFE RENTI AL/PL ATELE T RBC 5.81 x10e6 /uL 3.77-5 .28 above high normal Not Available [facility] ([facility]) [address] [facility], [place], [address], 03/24/2025 06:21:03 03/23/20 25 03/23/2025 CBC WITH DIFFE RENTI AL/PL ATELE T hemoglobin 12.8 g/dL 11.1-1 5.9 Not Available [facility] ([facility]) [address] [facility], [place], [address], 03/24/2025 06:21:03 03/23/2003/23/2025 CBC WITH DIFFE RENTI AL/PL ATELE T hematocrit 42.3 % 34.0-4 6.6 Not Available [facility] ([facility]) [address] [place], [address], 03/24/2025 06:21:03 03/23/20 25 03/23/2025 CBC WITH DIFFE RENTI AL/PL ATELE T MCV 73 fL 79-97 below low normal Not Available [facility] ([facility]) [address] [place], [address], 03/24/2025 06:21:03 03/23/2003/23/2025 CBC WITH DIFFE RENTI AL/PL ATELE T MCH 22.0 pg 26.6-3 3.0 below low normal Not Available [facility] ([facility]) [address] [place], [address], 03/24/2025 06:21:03 03/23/20 25 03/23/2025 CBC WITH DIFFE RENTI AL/PL ATELE T MCHC 30.3 g/dL 31.5-3 5.7 below low normal Not Available [facility] ([facility]) [address] [facility], [place], [address], 03/24/2025 06:21:03 03/23/20 25 03/23/2025 CBC WITH DIFFE RENTI AL/PL ATELE T RDW 15.9 % 11.7-1 5.4 above high normal Not Available [facility] ([facility]) [address] [facility], [place], [address], 03/24/2025 06:21:03 03/23/20 25 03/23/2025 CBC WITH DIFFE RENTI AL/PL ATELE T platelets 245 x10e3 /uL 150-45 0 Not Available [facility] ([facility]) [address] [facility], [place], [address], 03/24/2025 06:21:03 03/23/20 25 03/23/2025 CBC WITH DIFFE RENTI AL/PL ATELE T neutrophils 64 % notest ab. Not Available [facility] ([facility]) [address] [facility], [place], [address], 03/24/2025 06:21:03 03/23/20 25 03/23/2025 CBC WITH DIFFE RENTI AL/PL ATELE T lymphs 24 % notest ab. Not Available [facility] ([facility]) [address] [place], [address], 03/24/2025 06:21:03 03/23/2003/23/2025 CBC WITH DIFFE RENTI AL/PL ATELE T monocytes 7 % notest ab. Not Available [facility] ([facility]) [address] [place], [address], 03/24/2025 06:21:03 03/23/20 25 03/23/2025 CBC WITH DIFFE RENTI AL/PL ATELE T eos 4 % notest ab. Not Available [facility] ([facility]) [address] [place], [address], 03/24/2025 06:21:03 03/23/20 25 03/23/2025 CBC WITH DIFFE RENTI AL/PL ATELE T basos 0 % notest ab. Not Available [facility] ([facility]) [address] [facility], [place], [address], 03/24/2025 06:21:03 03/23/20 25 03/23/2025 CBC WITH DIFFE RENTI AL/PL ATELE T neutrophils (absolute) 5.0 x10e3 /uL 1.4-7. 0 Not Available [facility] ([facility]) [address] [facility], [place], [address], 03/24/2025 06:21:03 03/23/20 25 03/23/2025 CBC WITH DIFFE RENTI AL/PL ATELE T lymphs (absolute) 1.9 x10e3 /uL 0.7-3. 1 Not Available [facility] ([facility]) [address] [facility], [place], [address], 03/24/2025 06:21:03 03/23/20 25 03/23/2025 CBC WITH DIFFE RENTI AL/PL ATELE T monocytes(ab solute) 0.5 x10e3 /uL 0.1-0. 9 Not Available [facility] ([facility]) [address] [facility], [place], [address], 03/24/2025 06:21:03 03/23/20 25 03/23/2025 CBC WITH DIFFE RENTI AL/PL ATELE T eos (absolute) 0.3 x10e3 /uL 0.0-0. 4 Not Available [facility] ([facility]) [address] [facility], [place], [address], 03/24/2025 06:21:03 03/23/20 25 03/23/2025 CBC WITH DIFFE RENTI AL/PL ATELE T baso (absolute) 0.0 x10e3 /uL 0.0-0. 2 Not Available [facility] ([facility]) [address] [place], [address], 03/24/2025 06:21:03 03/23/20 25 03/23/2025 CBC WITH DIFFE RENTI AL/PL ATELE T immature granulocytes 0 % notest ab. Not Available [facility] ([facility]) [address] [facility], [address], 03/24/2025 06:21:03 03/23/20 25 03/23/2025 CBC WITH DIFFE RENTI AL/PL ATELE T immature grans (abs) 0.0 x10e3 /uL 0.0-0. 1 Not Available [facility] ([facility]) [address] [place], [address], 03/24/2025 06:21:03 04/07/2004/08/2025 T4, FREE T4,free(dire ct) 1.24 NG/dL 0.82-1 .77 Not Available [facility] ([facility]) [address] [place], [address], 04/08/2025 13:12:59 04/07/20 25 04/08/2025 MAGNE SIUM magnesium 2.4 mg/dL 1.6-2. 3 above high normal Not Available [facility] ([facility]) [address] [place], [address], 04/08/2025 13:13:00 04/07/20 25 04/08/2025 TSH TSH 0.435 uIU/m L 0.450- 4.500 below low normal Not Available [facility] ([facility]) [address] [place], [address], 04/08/2025 13:13:00 04/07/20 25 04/08/2025 TRIIO DOTHY FELICIA E (T3), FREE triiodothyro nine (T3), free 2.8 pg/mL 2.0-4. 4 Not Available [facility] ([facility]) [address], [place], [address], 04/08/2025 13:13:01 04/07/20 elect rocar diogr am No observ ation record ed. LOWELL In-Office Order Internal Use Only DO Not Attach Compendium DO Not Attach Compendium, Do Not Delete/merge, [id number] 04/07/2025 15:19:46 04/07/2004/07/2025 elect rocar diogr am No observ ation record ed. BARCODE Not Available 2024 16:04:19 05/07/2004/27/2025 , [facility] ardio gram No observ ation record ed. [facility] [address], [place], [address], 05/11/2025 15:07:33 Result Notes None recorded. Problems Name Problem SNOMED Code Status Onset Date Resolution Date Notes Provider Name and Address Organization Details Recorded Time Acute urinary tract infection 235271755 Active Eugene María Elena [place], [place] - [facility] 5 10:28:37 Menopause Active 2016 Eugene María Elenashanda [place], [place] - [facility] 7 15:02:06 History of total hysterectomy 222767884 Active 2019 Eugene María Elena null, [place] - [facility] 0 11:58:06 Gastroesophage al reflux disease 090423931 Active 2019 Eugene María [place], [place] [facility] 0 12:03:00 Hiatal hernia 22003259 Active 2019 Eugene MontañoMaría Elena [place], [place] - [facility] 0 12:03:12 Essential hypertension 95440061 Active [address] [place] null, [place] - [facility] 5 11:56:42 Hyperlipidemia 30791075 Active 2023 Blu Oconnor MD Attn: Juliano gomez,[address], [place], [address], [place] - [facility] 4 12:25:48 Osteoarthritis 043350654 Active 2023 Blu Oconnor MD Attn: Juliano gomez,[address] [facility], [place], [address], [facility] - [facility] 4 12:25:49 Pain in left lower limb 381111969 Active 2023 Blu Oconnor MD Attn: Juliano gomez,[address] [place], [address], [place] - [facility] 4 12:25:50 Chronic rhinitis 82173313 Active 2024 Blu Oconnor MD Attn: Juliano gomez,[address] [facility], [place], [address], [facility] - [facility] 5 21:05:20 Stricture of esophagus 96777063 Active 2024 CHRISTIN Peterson, [facility] 5 11:56:42 Problem Notes None recorded. Procedures Surgical History Date Name Laterality Status Provider Name and Address Organization Details Recorded Time 10/26/19 22 Date of Last Mammogram completed Maame Oliva [place] - [facility] 11/30/2021 10:32:30 06/17/19 13 Date of Last Pap Smear completed Vivienne Gomez MA [facility] 04/19/2016 15:18:17 06/17/19 13 Most Recent Mammogram completed Vivienne Gomez MA [facility] 04/19/2016 15:19:29 Hysterectomy completed Vivienne Gomez MA [facility] 04/19/2016 15:05:14 Esophagoscopy rigid balloon completed Vivienne Gomez [place] [facility] 04/19/2016 15:17:50 Imaging Results None recorded. Procedure Notes None recorded. Medical Equipment None Reported. Allergies Allergen ID Allergen Name Allergen Category Reaction Reaction Severity Criticality Documentation Date Start Date Code Code System Note Provider Name and Address Organization Details Recorded Time 423570 Aleve medicatio n wheezing moderate Not available 06/25/20192016 78591 1 RxNorm Eugene Ring [place], [place] - [facility] 0 11:59:19 734193 cephalexi n medicatio n chest pain rash mild moderate Not available 10/16/2022 2231 RxNorm [place] BAILEE Sellers null, [place] - [facility] 3 12:34:32 058633 sumatript an medicatio n Not available Not available Not available 01/12/2025 15983 RxNorm Davina Saxena [place], [place] - [facility] 5 16:01:50 059016 penicilli n V Not available dyspnea severe Not available 04/17/2025 7984 RxNorm Not Available [facility] - [employer] - prod 5 01:34:33 73870 codeine medicatio n respirato ry distress severe Not available 04/19/2016 2670 RxNorm Vivienne Gomez [place], [place] - [facility] 6 15:10:14 55023 Product containin g penicilli n (product) medicatio n rash respirato ry distress moderate severe Not available 04/19/2016 82520 8001 SNOMED Vivienne Gomez [place] null, [place] - [facility] 6 15:10:58 Medications Name Sig Start Date [...] Updated DateTime 5 165.1 cm 26.5 kg/m2 16112.9 1 g 76 /min 98 % 100/72 mm[Hg] Davina Saxena MA [facility] 5 16:01:34 Date Recorded Body height Body mass index (BMI) Body weight Heart rate Oxygen saturation Systolic And Diastolic Provider Name and Address Organization Details Last Updated DateTime 5 165.1 cm 26.5 kg/m2 73443.2 6 g 80 /min 98 % 158/90 mm[Hg] Geetha Gomez MA [facility] 5 11:16:50 Date Recorded Body height Heart rate Oxygen saturation Systolic And Diastolic Provider Name and Address Organization Details Last Updated DateTime 03/30/2025 165.1 cm 80 /min 98 % 140/84 mm[Hg] Davina Saxena MA [facility] 03/30/2025 10:42:59 Date Recorded Body height Body mass index (BMI) Body weight Heart rate Oxygen saturation Systolic And Diastolic Provider Name and Address Organization Details Last Updated DateTime 5 165.1 cm 26.5 kg/m2 40548.1 9 g 74 /min 98 % 124/78 mm[Hg] Davina Saxena MA [facility] 5 13:53:43 Date Recorded Body height Body mass index (BMI) Body weight Heart rate Oxygen saturation Systolic And Diastolic Provider Name and Address Organization Details Last Updated DateTime 5 165.1 cm 26.5 kg/m2 90738.1 9 g 74 /min 98 % 114/70 mm[Hg] Davina Saxena MA [facility] 5 12:47:59 Social History Question Answer Notes LastModified by Organizat ion Details LastModified Time Tobacco Smoking Status Never Smoker Vivienne Patricia [facility] 04/19/2016 15:11:31 Do You Have An [...] not available 07/21/2024 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 Never used electronic cigarettes [email or web address] Information not available 06/25/2019 What is your [...] Eating Disorder N Anemia N Heart Attack ([place]) N Ovarian Cancer N Diabetes N Blood [...] mcg/0.25mL dose 11/29/2020 completed Cher Bonner MA KAT [place] - [facility] 01/22/2024 11:55:48 COVID-19, mRNA, LNP-S, PF, 100 mcg/0.5mL dose or 50 mcg/0.25mL dose 12/28/2020 completed Cher Bonner MA KAT [place] - [facility] 01/22/2024 11:55:48 Past Encounters Encounter ID Performer Location Encounter Start Date Encounter Closed Date Diagnosis/Indication Diagnosis SNOMED-CT Code Diagnosis ICD10 Code Diagnosis IMO Codes Diagnosis Note [id number] MD Ron La (INSTRUMENT AND ELECTRICAL TECHNICIAN) [address] [place] [id number] 04/19/2016 14:46:17 04/19/2016 22:07:54 Acute urinary tract infection 168027870 N39.0 Venereal d isease screening 361688829 Z11.3 [id number] [facility] (INSTRUMENT AND ELECTRICAL TECHNICIAN) [address] [place] [id number] 06/25/2019 10:58:56 06/25/2019 12:29:56 Screening mammography 30958798 Z12.31 History of total hysterectomy 917608209 Z90.710 Menopause 319132595 N95. 1 [id number] DIDI ZUÑIGA [facility] (INSTRUMENT AND ELECTRICAL TECHNICIAN) [address] [place] [id number] 09/17/2019 15:25:42 09/22/2019 09:29:00 History of urinary tract infection 2800026063 107 Z87.440 Asymptomat ic. UA unremarkab le. Will send for culture but suspect negative results. Abx pending results. Acute low back pain 2788 05749 M54.5 Resolved spontaneou sly. PE unremarkab le. Less like pyelonephr itis or UTI with no other associated symptoms. Cause unknown, possibilit y of nephrolith iasis with acute onset of pain that resolved with increased water intake. Trace blood in urine. Advised pt continue to push fluids. RTC if pain returns, will consider imaging at that time. F/u urine culture. Pt agreeable with plan. [id number] DIDI ZUÑIGA (INSTRUMENT AND ELECTRICAL TECHNICIAN) [address] [place] [id number] 08/30/2021 09:14:49 09/01/2021 08:53:12 Menopausal flushing 522048212 N95.1 Currently taking estradiol- norethindr one acetate 0.5mg-0.1m g daily for postmenopa usal vasomotor symptoms. She is still having ~3 hot flashes per week, primarily at night and is wondering if she can up her dose. Order for estradiol 1 mg placed as progestero ne is not needed due to history of hysterecto my. RTC in 3 months to reassess. Screening for malignant neoplasm of breast 127237122 Z12.31 Last MAMMO several years ago. Denies breast symptoms such as tenderness , masses, or discharge. Declined breast exam. MAMMO ordered for routine annual screening, strongly encouraged pt to schedule. Gynecologi c examination 38266723 Z01.419 Cervical cancer screening: No longer indicated due to hysterecto myBreast cancer screening: Reviewed recommenda tions for initiation at age 40 with annual screening. Discussed SBEDiet/ex ercise: Counseled regarding importance of physical activity, healthy diet and appropriat e calcium intake. DEXA at age 63 [id number] DIDI ZUÑIGA (INSTRUMENT AND ELECTRICAL TECHNICIAN) [address] [place] [phone] 11/30/2021 10:29:30 12/14/2021 13:45:12 Menopause 690446189 N95.1 Vasomotor symptoms improved on ERT, only having infrequent mild hot flashes. ASCVD and breast cancer risk low, will continue estradiol as prescribed . Advised pt keep rooms cool and sleep with fan. Dress in layers so that clothing can be removed when hot flash occurs and wear natural fabrics. Avoid foods that raise body temperatur e such as alcohol, caffeine, hot liquids, spicy foods. Eat smaller meals throughout the day. Get at least 30 minutes of exercise on most days of the week. RTC in 1 year. [id number] DIDI ZUÑIGA (INSTRUMENT AND ELECTRICAL TECHNICIAN) [address] [place] [id number] 08/10/2022 17:21:06 08/16/2022 10:22:00 Dysuria 65211204 R30.0 [id number] DIDI ZUÑIGA (INSTRUMENT AND ELECTRICAL TECHNICIAN) [address] [place] [id number] 0 10/02/2022 12:04:53 10/10/2022 14:14:10 Acute urinary tract infection [id number] N39.0 Irritative voiding symptoms that have resolved over the past week with cranberry juice and AZO.UA today with trace blood, otherwise negative. Will send for cultureEmp iric abx sent to pharmacy, advised pt to take if symptoms return or culture comes back positiveRT C prn [id number] MD Ron Herrera (Adult Med) [address] [place] [address] [phone] [id number] 07/17/2023 10:14:48 07/18/2023 14:48:48 Menopause [id number] Z78.0 Vasomotor symptoms improved on ERT, only having infrequent mild hot flashes. ASCVD and breast cancer risk low, will continue estradiol as prescribed . Advised pt keep rooms cool and sleep with fan. Dress in layers so that clothing can be removed when hot flash occurs and wear natural fabrics. Avoid foods that raise body temperatur e such as alcohol, caffeine, hot liquids, spicy foods. Eat smaller meals throughout the day. Get at least 30 minutes of exercise on most days of the week. RTC in 1 year. Screening for malignant neoplasm of breast 261814624 Z12.39 Body mass index 25-29 - overweight 690337240 Z68.27 BMI 27 Depression screening 171 726521 Z13.31 PHQ9- Negative (0 out of 27) Mental hea lt screening 092160349 Z13.39 GAD7- Negative (0 out of 21) [id number] MD Ron Gamez (Adult Med) [address] [place] [address] [phone] 0 09/18/2023 11:15:33 09/18/2023 12:29:39 Essential hypertension 78718702 I10 Hyperlipidemia 61264947 E78.5 Osteoarthritis 114824372 M19.90 Pain in le ft lower limb 066929657 M79.955 [id number] MD Ron Gamez (Adult Med) [address] [place] [address] [id number] 0 01/22/2024 11:20:47 01/22/2024 12:34:11 Essential hypertension 44880450 I10 Gastroesop hageal reflux disease 318913591 K21.9 Hyperlipidemia 49433633 E78.5 Osteoarthritis 896851570 M19.90 [id number] MD Ron Gamez (Adult Med) [address] [place] [address] [phone] 0 07/21/2024 11:50:18 07/21/2024 12:45:04 Body mass index 25-29 - overweight 335313375 Z68.27 Overweight 988664853 E66 .3 Essential hypertension 21616074 I10 Hyperlipidemia 49596735 E78.5 Pain in le ft lower limb 214742447 M79.077 [id number] MD Ron Gamez (Adult Med) [address] [place] [address] [phone] 0 01/12/2025 15:10:20 01/12/2025 16:37:15 Overweight in adulthood with body mass index of 25 or more but less than 30 651455433 Z68.26 487261 Essential hypertension 63487131 I10 Hyperlipidemia 28059753 E78.5 Gastroesop hageal reflux disease 542177265 K21.9 Osteoarthritis 667055046 M19.90 Chronic rhinitis 0934795 6 J31.0 2545 [id number] MD Ron Gamez (Adult Med) [address] [place] [address] [phone] 0 03/23/2025 11:05:40 03/23/2025 11:55:53 Overweight in adulthood with body mass index of 25 or more but less than 30 102817768 E66.3 Z68.26 0995548405 Essential hypertension 44435722 I10 Stricture of esophagus 68286023 K22.2 14459 Bronchitis 38918670 J40 67408 Hyperlipidemia 12919241 E78.5 [id number] MD Ron Gamez (Adult Med) [address] [place] [address] [phone] 0 03/30/2025 10:28:16 03/30/2025 15:33:10 Blood pressure taking 35464755 Z01.30 745978 [id number] MD Ron Gamez (Adult Med) [address] [place] [address] 04/07/2025 12:03:45 04/07/2025 14:02:57 Overweight in adulthood with body mass index of 25 or more but less than 30 736719356 Z68.26 4996867743 26.5 Essential hypertension 28919237 I10 Palpitations 01395918 R0 0.2 26907 Hyperlipidemia 83815209 E78.5 Stricture of esophagus 66967489 K22.2 62283 [id number] MD Ron Gamez (Adult Med) [address] [place] [address] 05/07/2025 12:15:57 05/07/2025 13:19:07 Overweight in adulthood with body mass index of 25 or more but less than 30 267714072 Z68.26 162621 26.5 Essential hypertension 24362600 I10 Hyperlipidemia 23203654 E78.5 Palpitations 66250314 R0 0.2 24061 Stricture of esophagus 70683875 K22.2 98069 Health Concerns Section Related Observation LastModified by Organization Detai ls LastModified Time None Recorded Concern Status LastModified by Organization Details LastModified Time None Recorded Advance Directives Directive N: Payers Insurance Date Sequence Insurance Name Policy Number Policy [place] Covered Member ID [place] Member ID Guarantor Name 08/10/2024 1 [employer] (HMO) Rona Davis [id number] Rona Davis 08/13/2024 1 [employer] (MEDICARE REPLACEMENT/A DVANTAGE - PPO) Rona Davis [id number] Rona Davis 08/16/2022 1 [facility] - DOS ON OR AFTER 20 (MEDICAID REPLACEMENT - HMO) Rona Davis [id number] Rona Davis 10/02/2022 1 [place] - [facility] Rona Davis [id number] Rona Davis 08/29/2022 1 [employer] (POS) [id number] Rona Davis [id number] Rona Davis 05/10/2025 1 [employer] - GOLD PLUS (MEDICARE REPLACEMENT/A DVANTAGE - HMO) Rona Davis [id number] Rona Davis 05/28/2019 1 [facility] [id number] Rona Davis [id number] Rona Davis 07/21/2024 1 [facility] (MEDICARE REPLACEMENT/A DVANTAGE - HMO) [id number] Rona Davis [id number] Rona Davis 07/17/2023 [place] Rona Davis [id number] Rona Davis 05/04/2025 2 [place] WHEN MEDICARE OR MEDICARE REPLACEMENT PRIMARY) Rona Davis [id number] Rona Davis Notes Date Note Type Note Provider Name and Address Organization Details Recorded Time 5 text/html hypertension no chest pain or headache. GERD no nausea no vomiting. Hyperlipidemia trying to follow a low-fat diet is taking atorvastatin Osteoarthritis appears to be stable Blu Oconnor MD Attn: [address] [place], [address], [facility] 01/12/2025 21:06:07 5 text/html Flu-like symptoms about a week ago [...] strictures coming back Blu Oconnor MD Attn: [address] [place], [address], [facility] 04/04/2025 16:37:37 5 text/html Hypertension blood pressure better now she describes a little bit of palpitations in her upper chest when she lies down at night no dizziness or feeling like she is going to pass out also feels like her esophageal stricture is worse Blu Oconnor MD Attn: [address]ing[address] [place], [address], [facility] 04/10/2025 15:17:08 11/21/202 5 text/html Blood pressure improvedPalpitations seem to have resolvedStricture symptomatology she is getting scope next weekEcho we are trying to get the reportHas not done Holter yet Blu Oconnor MD Attn: [address] [facility], [place], [address], [place] [facility] 05/07/2025 14:47:07 OBGyn Episode Ob Episode Information Episode Created Date Number of Fetuses Patient Bloodtype Patient rh Status Prepregnancy Weight lbs Domestic Partner Domestic Partner Phone Father Name Food Service Counter Clerk Status 04/19/20 16 1 CLOSED Fetus Data First Name Last Name Admitted to NICU Weight (g) Sex Living Outcome Pediatric Complications Fetus ID Race Codes Race Delivery Type 3628.73 6 M Full Term 16737 Vaginal Mario Calculation Initial Mario Date Initial Exam Date Initial Exam Provider Initial Ultrasound Date Last Menstrual Period Date Ultra Sound Weeks Gestation 0 Eighteen To Twenty Week Mario Update Ultra Sound Date Fundal Height At Umbil Quickening Date Ultra Sound Latest Weeks Gestation Final Mario Confirmed By Final Mario Confirmed Date Final Mario Date Ultra Sound Latest Days Gestation 0 0 Menstrual History Last Menstrual Date Menses Monthly On Bcp Conception Prior Menses Frequency Hcg Plus Date Menarche Onset Age Delivery Information Delivery Date Delivery Type Labor Anesthesia Weeks Gestation Incision Type Labor Labor Length Hrs Delivered By Post Complications Tubal Sterilization Discharge Date Comments 6 None 40 baby was born in [place] Discharge Information Feeding Method Contraceptive Method Maternal HG B and HCT Levels Ob Episode Information Episode Created Date Number of Fetuses Patient Bloodtype Patient rh Status Prepregnancy Weight lbs Domestic Partner Domestic Partner Phone Father Name Food Service Counter Clerk Status 04/19/20 16 1 CLOSED Fetus Data First Name Last Name Admitted to NICU Weight (g) Sex Living Outcome Pediatric Complications Fetus ID Race Codes Race Delivery Type 4082.32 8 M Full Term 05478 Vaginal Mario Calculation Initial Mario Date Initial Exam Date Initial Exam Provider Initial Ultrasound Date Last Menstrual Period Date Ultra Sound Weeks Gestation 0 Eighteen To Twenty Week Mario Update Ultra Sound Date Fundal Height At Umbil Quickening Date Ultra Sound Latest Weeks Gestation Final Mario Confirmed By Final Mario Confirmed Date Final Mario Date Ultra Sound Latest Days Gestation 0 0 Menstrual History Last Menstrual Date Menses Monthly On Bcp Conception Prior Menses Frequency Hcg Plus Date Menarche Onset Age Delivery Information Delivery Date Delivery Type Labor Anesthesia Weeks Gestation Incision Type Labor Labor Length Hrs Delivered By Post Complications Tubal Sterilization Discharge Date Comments 8 None 41 false Baby was born in Discharge Information Feeding Method Contraceptive Method Maternal HG B and HCT Levels Ob Episode Information Episode Created Date Number of Fetuses Patient Bloodtype Patient rh Status Prepregnancy Weight lbs Domestic Partner Domestic Partner Phone Father Name Food Service Counter Clerk Status 04/19/20 16 1 CLOSED Fetus Data First Name Last Name Admitted to NICU Weight (g) Sex Living Outcome Pediatric Complications Fetus ID Race Codes Race Delivery Type 3316.66 4704 M Full Term [id number] Vaginal Mario Calculation Initial Mario Date Initial Exam Date Initial Exam Provider Initial Ultrasound Date Last Menstrual Period Date Ultra Sound Weeks Gestation 0 Eighteen To Twenty Week Mario Update Ultra Sound Date Fundal Height At Umbil Quickening Date Ultra Sound Latest Weeks Gestation Final Mario Confirmed By Final Mario Confirmed Date Final Mario Date Ultra Sound Latest Days Gestation 0 0 Menstrual History Last Menstrual Date Menses Monthly On Bcp Conception Prior Menses Frequency Hcg Plus Date Menarche Onset Age Delivery Information Delivery Date Delivery Type Labor Anesthesia Weeks Gestation Incision Type Labor Labor Length Hrs Delivered By Post Complications Tubal Sterilization Discharge Date Comments 5 None 40 false 18 Baby was born in Discharge Information Feeding Method Contraceptive Method Maternal HG B and HCT Levels
[2025-05-12 11:22] VITALS: BP 126/79; PULSE 81; RESP 18; TEMP 36.6; O2SAT 100
[2025-05-12] MEDS: LACTATED RINGERS 1,000 ML 150 ML IV CONT (11:30)
--- NOTE | 2025-05-12 11:30 | WPDANESEPPF ---
Anes - Initial Pre Proc Eval Procedure: Operation Date: 05/12/25 14:00 Proposed Procedures p EGD & Screening Colonoscopy - Luis A Smith MD Date/Time: 05/12/25 11:30 Surgeon: Luis A Smith MD Pre Op Diagnosis: Esophageal obstruction, screening Patient Data Age: 65 Gender: F Height: 1.65 m Weight: 70 kg Last Vital Signs Temp 36.6 C 05/12/25 11:22 Pulse 81 05/12/25 11:22 Resp 18 05/12/25 11:22 BP 126/79 05/12/25 11:22 Pulse Ox 100 05/12/25 11:22 O2 Del Method Room Air 05/12/25 11:22 Allergies Allergy/AdvReac Type Severity Reaction Status Date / Time codeine Allergy Anaphylaxis Verified 05/12/25 11:19 naproxen (From Aleve) Allergy Anaphylaxis Verified 05/12/25 11:19 Penicillins Allergy Anaphylaxis Verified 05/12/25 11:19 Home Medications ?Medication ?Instructions ?Recorded ?Confirmed ?Type estradiol-norethindrone acet 0.5 1 tablet PO DAILY 10/12/19 05/12/25 History mg-0.1 mg tablet lansoprazole 15 mg capsule,delayed 15 mg PO DAILY 10/12/19 05/12/25 History release (Prevacid) lisinopril 20 mg tablet 20 mg PO DAILY 10/12/19 05/12/25 History montelukast 10 mg tablet 10 mg PO DAILY 10/12/19 05/12/25 History atorvastatin 20 mg tablet 20 mg PO DAILY 04/28/25 05/12/25 History Patient hx anesthesia problems: none Family hx anesthesia problems: none Results Review: All pre-operative results and documents have been reviewed as part of the pre-operative evaluation. [facility] Surgical History Surgical History H/O: hysterectomy History of hernia surgery Social History Social History Smoking status: Never smoker Alcohol intake: never Substance use: never Substance use type: does not use Living arrangements: alone Spiritual care concerns: No Anes - Eval Final PreProcedure Day of Procedure 11/26/25 11:30 Patient weight: overweight Heart: regular rate and rhythm Lungs: clear to auscultation Airway: Mallampati scale class II Neurological: alert and oriented Last oral intake: >/= 8 hours ASA classification: II Emergent: no Anesthetic plan: proceed Anesthesia type and monitoring: general GIVS and standard monitoring Results Review: All pre-operative results and documents have been reviewed as part of the pre-operative evaluation. Informed Consent: The patient's anesthetic plan and its attendant risks and benefits were discussed with the patient/family/POA. Questions were solicited and answers provided to the satisfaction of the patient/family/POA.
--- NOTE | 2025-05-12 12:12 | PM.HPGS ---
History of Present Illness History of Present Illness Consent: Risks, benefits, and alternatives have been discussed and questions answered. Patient agrees to proceed with procedure. Chief complaint: Esophageal obstruction, screening Narrative: Rona Davis is a 65 year old female with dysphagia, had egd with dilation about 7 years ago, also needs screening colonoscopy Review of Systems Review of Systems: All systems reviewed & are unremarkable except as noted in HPI and below PMFSH Past Medical History Medical History (Updated 05/12/25 @ 12:13 by Luis A Smith MD) Colon cancer screening Dysphagia Surgical History Surgical History H/O: hysterectomy History of hernia surgery Social History Social History Smoking status: Never smoker Alcohol intake: never Substance use: never Substance use type: does not use Living arrangements: alone Spiritual care concerns: No Meds Home Medications and Allergies Home Medications ?Medication ?Instructions ?Recorded ?Confirmed ?Type estradiol-norethindrone acet 0.5 1 tablet PO DAILY 10/12/19 05/12/25 History mg-0.1 mg tablet lansoprazole 15 mg capsule,delayed 15 mg PO DAILY 10/12/19 05/12/25 History release (Prevacid) lisinopril 20 mg tablet 20 mg PO DAILY 10/12/19 05/12/25 History montelukast 10 mg tablet 10 mg PO DAILY 10/12/19 05/12/25 History atorvastatin 20 mg tablet 20 mg PO DAILY 04/28/25 05/12/25 History Allergies Allergy/AdvReac Type Severity Reaction Status Date / Time codeine Allergy Anaphylaxis Verified 05/12/25 11:19 naproxen (From Aleve) Allergy Anaphylaxis Verified 05/12/25 11:19 Penicillins Allergy Anaphylaxis Verified 05/12/25 11:19 Vital Signs Vital Signs - 24 hr 05/12/25 11:22 Temperature 97.8 F Pulse Rate 81 Respiratory Rate 18 Blood Pressure 126/79 Pulse Oximetry 100 Oxygen Delivery Room Air Exam Const: General: comfortable and no acute distress HENMT: Face/Nose/Sinus: Normal nares present Eyes: General: appearance normal, both eyes and all related structures Neck: Neck: no JVD Resp: Auscultation: clear to auscultation bilaterally Cardio: Rate: regular rate Rhythm: regular rhythm GI: Inspection: non-distended GI Palp: Yes Soft to palpation Skin: General skin exam: normal color Extrem: General: normal to inspection Psych: Mental Status: mental status grossly normal Assessment and Plan Assessment and plan (1) Dysphagia: Code(s): R13.10 - Dysphagia, unspecified Status: Acute Assessment and Plan: egd (2) Colon cancer screening: Code(s): Z12.11 - Encounter for screening for malignant neoplasm of colon Status: Acute Assessment and Plan: colonoscopy
--- NOTE | 2025-05-12 12:36 | SUR.OPER ---
EGD START 1218, END 1223 COLONOSCOPY START 1228, END 1236
[2025-05-12 12:37] VITALS: BP 112/66; PULSE 80; RESP 20; O2SAT 99
[2025-05-12 12:47] VITALS: BP 107/63; PULSE 77; RESP 19; O2SAT 98
[2025-05-12 12:57] VITALS: BP 119/73; PULSE 71; RESP 17; O2SAT 93
== END 2025-05-12 13:06 | disposition home or self-care (01) ==
PROVIDERS: PCP Internal Medicine; Referring Provider Internal Medicine; Visit Provider Internal Medicine Gastroenterology
PROC: 0DJ08ZZ Inspection of Upper Intestinal Tract, Via Natural or Artificial Opening Endoscopic (ICD-10-PCS; CPT 45378; principal; 2025-05-12 14:00)
DX: Z12.11 Encounter for screening for malignant neoplasm of colon (principal); K57.30 Diverticulosis of large intestine without perforation or abscess without bleeding; K64.8 Other hemorrhoids; K22.2 Esophageal obstruction; K44.9 Diaphragmatic hernia without obstruction or gangrene; K31.7 Polyp of stomach and duodenum
CPT/HCPCS: 43249; G0121; C1726; J2704; J7120